=== PATIENT | female | born 1935 | race Caucasian/White ===

== ENCOUNTER 2021-12-13 10:00 | Outpatient (RCR) | payer MEDICARE, SELFPAY | END 2021-12-14 23:59 | disposition home or self-care (01) | LOC: CHSSENLIFE 10:00 | PROVIDERS: PCP Family Medicine; Visit Provider Psychiatry & Neurology Psychiatry | DX: F32.2 Major depressive disorder, single episode, severe without psychotic features (principal) | CPT/HCPCS: 90792; 90853; 99213; 99214; G0463 ==

== ENCOUNTER 2022-03-09 10:00 | Outpatient (RCR) | payer MEDICARE, SELFPAY | END 2022-03-15 23:59 | disposition home or self-care (01) | LOC: CHSSENLIFE 10:00 | PROVIDERS: PCP Family Medicine; Visit Provider Psychiatry & Neurology Psychiatry | DX: F32.2 Major depressive disorder, single episode, severe without psychotic features (principal) | CPT/HCPCS: 90853; 99213; 99214; G0463 ==

== ENCOUNTER 2022-06-21 10:00 | Outpatient (RCR) | payer MEDICARE, SELFPAY | END 2022-06-26 23:59 | disposition home or self-care (01) | LOC: CHSSENLIFE 10:00 | PROVIDERS: PCP Family Medicine; Visit Provider Psychiatry & Neurology Psychiatry | DX: F32.2 Major depressive disorder, single episode, severe without psychotic features (principal) | CPT/HCPCS: 90834; 90853; 99213; G0463 ==

== ENCOUNTER 2022-07-13 10:00 | Outpatient (RCR) | payer MEDICARE, SELFPAY | END 2022-07-13 14:23 | disposition home or self-care (01) | LOC: CHSSENLIFE 10:00 | PROVIDERS: PCP Family Medicine; Visit Provider Psychiatry & Neurology Psychiatry | DX: F32.2 Major depressive disorder, single episode, severe without psychotic features (principal) | CPT/HCPCS: 90853; 99213; G0463 ==

== ENCOUNTER 2022-12-05 10:00 | Outpatient (RCR) | payer MEDICARE, SELFPAY | END 2022-12-06 23:59 | disposition home or self-care (01) | LOC: CHSSENLIFE 10:00 | PROVIDERS: PCP Family Medicine; Visit Provider Psychiatry & Neurology Psychiatry | DX: F32.2 Major depressive disorder, single episode, severe without psychotic features (principal) | CPT/HCPCS: 90792; 90853; 99213; 99214; G0463 ==

== ENCOUNTER 2023-03-06 10:00 | Outpatient (RCR) | payer MEDICARE, SELFPAY ==
[2022-12-19 11:09] VITALS: BP 100/66; PULSE 83; RESP 20; TEMP 36.5; O2SAT 94
--- NOTE | 2022-12-21 10:18 | PC.NURSE ---
No nursing group due to MD visit.
[2022-12-21 10:27] VITALS: BP 120/60; PULSE 89; RESP 20; TEMP 36.3; O2SAT 96
[2022-12-26 11:05] VITALS: BP 134/79; PULSE 86; RESP 20; TEMP 36.7; O2SAT 94
--- NOTE | 2022-12-28 09:49 | PC.NURSE ---
No nursing group due to MD visit.
[2022-12-28 10:13] VITALS: BP 111/65; PULSE 83; RESP 20; TEMP 36.8; O2SAT 92
[2023-01-01 10:29] VITALS: BP 106/78; PULSE 84; RESP 20; TEMP 36.5
--- NOTE | 2023-01-03 10:41 | PC.NURSE ---
The patient was not able to attend group today because she needed to go to [place] to get her infusion.
[2023-01-09 10:23] VITALS: BP 119/73; PULSE 83; RESP 20; TEMP 36.6; O2SAT 93
[2023-01-11 09:50] VITALS: BP 110/64; PULSE 85; RESP 20; TEMP 36.5; O2SAT 92
--- NOTE | 2023-01-11 10:21 | PC.NURSE ---
No nursing group due to MD visit.
--- NOTE | 2023-01-11 11:12 | WPDSLSPROGRE ---
Progress HPI Progress HPI Visit Attended By patient and staff History Obtained From patient Chief Complaint four-week follow-up HPI This is a follow-up for depression. Patient kaylene's the program participates well. She is working primarily on grief, as well as coping skills and anxiety reduction. Patient says that she had a good Thanksgiving visiting with family. One of her longstanding friends recently and this has been difficult for her. Nevertheless, she continues to work on self-care, and is going to go out to the cemetery to put [place] and wreaths on relative's graves. Patient continues on Celexa 20 mg q.a.m. and wishes to continue at this dose. Average Number of Hours of Sleep 8 Sleep Quality frequent awakening Change in PMFSH Releveant to Presenting Illness Yes Describe Changes in PMFSH Recent loss of friend as above Review of Systems Review of Systems Constitutional Reports denies change Eyes Reports WNL ENT Reports WNL Respiratory Reports WNL Cardiovascular Reports WNL Gastrointestinal Reports WNL Musculoskeletal Reports WNL ( rheumatoid arthritis, osteoarthritis, chronic pain, spinal stenosis) and Reports muscle stiffness Neurologic Reports WNL Skin Reports WNL ADL's Reports WNL Exam Physical Exam Review of Lab Studies n/a Hygiene good General Behavior/Attitude Toward Examiner pleasant and cooperative Pain Yes Pain Location generalized Pain Characteristics chronic and aching Psychiatric Exam Level of Consciousness alert Orientation person, place, time and situation Speech normal rate/tone/volume/prosody and coherent Language able to comprehend questions Mood mildly depressed Affect full range, appropriate and congruent Thought Processes/Form logical, linear and goal directed Thought Content depressive symptoms Delusions none Homicidal/Assaultive Ideation none Suicidal Ideation none Hallucinations none Attention/Concentration focused Attention/Concentration Testing Methods observation/interview Short Term Memory Impairment none STM Testing Methods clinical interview (assessment/observation) Halfway Memory Impairment none LTM Testing Methods recall of biographical information Intellectual Functioning roughly average Intellectual Functioning Assessed By current events Insight fair and improving Insight Assessed By ability to recognize & acknowledge mental illness, ability to understand the implications of mental illness, understanding of treatment options and ability to comply with treatment Judgement fair and improving Judgement Assessed By exploring recent decision-making MMSE n/a Patient Assets patient is willing to accept treatment Patient Liabilities patient has medical issues, prolonged grief Assessment and Plan Clinical Impression/Diag 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 Continue IOP, monitor meds Progress Overview Reason for Continued Services in an Intensive Outpatient Program continued impaired mood and.or depression, patient would decompenste at a lower level of care, not at baseline level of functioning and high risk for relapse Treatment To Be Provided medication management and group/individual/rec therapy Discharge Disposition/Level of Care PCP Anticipated Discharge 8-12 weeks Certification Statement Certification Statement I believe this patient requires the services of the Intensive Outpatient Program and that there is reasonable expectation that the patient will make timely and significant practical improvement in the presenting acute symptoms as a result of this Intensive Outpatient Program. I do not believe this patient will benefit from a lesser level of care or could be adequately and appropriately treated in a less restrict
[2023-01-16 09:55] VITALS: BP 125/68; PULSE 76; RESP 20; TEMP 36.1; O2SAT 93
[2023-01-17 10:52] VITALS: BP 105/56; PULSE 82; RESP 20; TEMP 37.2; O2SAT 93
[2023-01-23 10:37] VITALS: BP 111/65; PULSE 74; RESP 20; TEMP 36.7; O2SAT 92
[2023-01-24 11:13] VITALS: BP 120/58; PULSE 83; RESP 20; TEMP 37.1; O2SAT 93
[2023-01-30 10:19] VITALS: BP 123/66; PULSE 76; RESP 20; TEMP 36.8; O2SAT 96
--- NOTE | 2023-02-01 09:50 | PC.NURSE ---
No nursing group due to MD visit.
--- NOTE | 2023-02-01 10:43 | WPDSLSPROGRE ---
Progress HPI Progress HPI Visit Attended By patient and staff History Obtained From patient and other Chief Complaint Follow-up for depression HPI this is a routine follow-up. Patient enjoys the program and participates well. She continues to work primarily on grief, as well as anxiety reduction and coping skills. She feels that the 2nd holiday without her seems to be the worst so far. Fortunately she will be spending the holidays with family. She also has coffee with a group of ladies occasionally, and they are widows as well. Patient continues on Celexa 20 mg q.a.m. in which to continue at this dose. She is unable to tell me exactly how much sleep she gets a night because she sleeps a different times . Patient also has been conscientious about getting her vaccines. Average Number of Hours of Sleep 6 Sleep Quality difficulty falling asleep, frequent awakening and restlessness Change in PMFSH Releveant to Presenting Illness No Review of Systems Review of Systems Constitutional Reports denies change Eyes Reports WNL ENT Reports WNL Respiratory Reports WNL Cardiovascular Reports WNL Gastrointestinal Reports WNL Musculoskeletal Reports WNL ( Rheumatoid arthritis, osteoarthritis, chronic pain, spinal stenosis) and Reports muscle stiffness Neurologic Reports WNL Skin Reports WNL ADL's Reports WNL Exam Physical Exam Review of Lab Studies n/a Hygiene good General Behavior/Attitude Toward Examiner pleasant and cooperative Pain Yes Pain Location generalized Pain Characteristics chronic and aching Psychiatric Exam Level of Consciousness alert Orientation person, place, time and situation Speech normal rate/tone/volume/prosody and coherent Language able to comprehend questions Mood mildly depressed Affect full range and appropriate Thought Processes/Form logical, linear and goal directed Thought Content mildly depressed mood Delusions none Homicidal/Assaultive Ideation none Suicidal Ideation none Hallucinations none Attention/Concentration focused Attention/Concentration Testing Methods observation/interview Short Term Memory Impairment none STM Testing Methods clinical interview (assessment/observation) Intermediate Memory Impairment none LTM Testing Methods recall of biographical information Intellectual Functioning roughly average Intellectual Functioning Assessed By current events Insight fair Insight Assessed By ability to recognize & acknowledge mental illness, ability to understand the implications of mental illness, understanding of treatment options and ability to comply with treatment Judgement fair and improving Judgement Assessed By exploring recent decision-making MMSE n/a Patient Assets patient is willing to accept treatment Patient Liabilities multiple medical issues, prolonged grief Assessment and Plan Clinical Impression/Diag Clinical Impression/Diagnosis F 33.2, progressing well, persistent grief. Continue IOP, monitor meds Progress Overview Reason for Continued Services in an Intensive Outpatient Program continued impaired mood and.or depression, patient would decompenste at a lower level of care, not at baseline level of functioning and high risk for relapse Treatment To Be Provided medication management and group/individual/rec therapy Discharge Disposition/Level of Care PCP Anticipated Discharge 8-12 weeks Certification Statement Certification Statement I believe this patient requires the services of the Intensive Outpatient Program and that there is reasonable expectation that the patient will make timely and significant practical improvement in the presenting acute symptoms as a result of this Intensive Outpatient Program. I do not believe this patient will benefit from a lesser level of
[2023-02-01 14:37] VITALS: BP 110/59; PULSE 83; RESP 20; TEMP 36.8; O2SAT 93
--- NOTE | 2023-02-06 09:00 | PC.NURSE ---
The patient called this morning and told this nurse she was still out of town due to the holiday and would not be able to make her scheduled session today.
[2023-02-08 09:51] VITALS: BP 139/73; PULSE 87; RESP 20; TEMP 36.5; O2SAT 95
[2023-02-13 10:52] VITALS: BP 118/60; PULSE 80; RESP 20; TEMP 37.1; O2SAT 95
--- NOTE | 2023-02-15 09:59 | PC.NURSE ---
No nursing group due to MD visit.
[2023-02-15 10:44] VITALS: BP 122/66; PULSE 75; RESP 20; TEMP 37.1; O2SAT 97
[2023-02-20 10:25] VITALS: BP 114/63; PULSE 88; RESP 20; TEMP 37; O2SAT 94
--- NOTE | 2023-02-22 09:57 | PC.NURSE ---
No nursing group due to MD visit.
[2023-02-22 10:31] VITALS: BP 140/65; PULSE 79; RESP 20; TEMP 37.1; O2SAT 95
--- NOTE | 2023-02-22 11:45 | WPDSLSPROGRE ---
Progress HPI Progress HPI Visit Attended By patient and staff History Obtained From patient Chief Complaint Follow-up for depression HPI this is a 3 week follow-up for depression. Patient enjoys the program and participates well. She spent the holiday with family and had a very good visit. She still Grieves over her , and even feels guilty for trying to live her life without him. Patient is addressing this in therapy, and also has a group of ladies that she meets for coffee. She continues on Celexa 20 mg q.a.m. sleep continues to be variable. She did state that her roll finisher told her to take a Tylenol to help her get to sleep and she says that this helps, probably in part because it helps with the pain. Patient states that he did tell her to not take Tylenol p.m. with Benadryl, or NSAIDs. Average Number of Hours of Sleep 6 Sleep Quality difficulty falling asleep and frequent awakening Change in PMFSH Releveant to Presenting Illness No Review of Systems Review of Systems Constitutional Reports denies change Eyes Reports WNL ENT Reports WNL Respiratory Reports WNL Cardiovascular Reports WNL Gastrointestinal Reports WNL Musculoskeletal Reports other ( Rheumatoid arthritis, osteoarthritis, chronic pain, spinal stenosis) Neurologic Reports WNL Skin Reports WNL ADL's Reports WNL Exam Physical Exam Review of Lab Studies n/a Hygiene good General Behavior/Attitude Toward Examiner pleasant and cooperative Pain Yes Pain Location generalized Pain Characteristics chronic and aching Psychiatric Exam Level of Consciousness alert Orientation person, place, time and situation Speech normal rate/tone/volume/prosody and coherent Language able to comprehend questions Mood mildly depressed Affect full range, appropriate and congruent Thought Processes/Form logical, linear and goal directed Thought Content mildly depressed mood Delusions none Homicidal/Assaultive Ideation none Suicidal Ideation none Hallucinations none Attention/Concentration focused Attention/Concentration Testing Methods observation/interview Short Term Memory Impairment none STM Testing Methods clinical interview (assessment/observation) Server Developer Memory Impairment none LTM Testing Methods recall of biographical information Intellectual Functioning roughly average Intellectual Functioning Assessed By current events Insight fair and improving Insight Assessed By ability to recognize & acknowledge mental illness, ability to understand the implications of mental illness, understanding of treatment options and ability to comply with treatment Judgement fair and improving Judgement Assessed By exploring recent decision-making MMSE n/a Patient Assets patient is willing to accept treatment Patient Liabilities multiple medical issues, prolonged grief Assessment and Plan Clinical Impression/Diag Clinical Impression/Diagnosis F 33.2, progressing well, persistent grief. Continue IOP, monitor meds Progress Overview Reason for Continued Services in an Intensive Outpatient Program continued impaired mood and.or depression, patient would decompenste at a lower level of care, not at baseline level of functioning and high risk for relapse Treatment To Be Provided medication management and group/individual/rec therapy Discharge Disposition/Level of Care PCP Anticipated Discharge 8-12 weeks Certification Statement Certification Statement I believe this patient requires the services of the Intensive Outpatient Program and that there is reasonable expectation that the patient will make timely and significant practical improvement in the presenting acute symptoms as a result of this Intensive Outpatient Program. I do not believe this patient will benefit from
--- NOTE | 2023-02-28 08:57 | PC.NURSE ---
No nursing group due to meeting.
[2023-02-28 10:03] VITALS: BP 109/64; PULSE 86; RESP 20; TEMP 36.9; O2SAT 96
[2023-03-01 10:19] VITALS: BP 105/50; PULSE 74; RESP 20; TEMP 37.1; O2SAT 92
--- NOTE | 2023-03-01 10:48 | PC.NURSE ---
No nursing group due to MD visit.
[2023-03-06 10:42] VITALS: BP 115/87; PULSE 76; RESP 20; TEMP 37.2; O2SAT 95
== END 2023-03-07 23:59 | disposition home or self-care (01) ==
LOC: CHSSENLIFE 10:00
PROVIDERS: PCP Family Medicine; Visit Provider Psychiatry & Neurology Psychiatry
DX: F32.2 Major depressive disorder, single episode, severe without psychotic features (principal)
CPT/HCPCS: 90853; 99213; G0463

== ENCOUNTER 2023-06-05 10:00 | Outpatient (RCR) | payer MEDICARE, SELFPAY ==
[2023-03-08 00:02] VITALS: BP 115/87; PULSE 76; RESP 20; TEMP 37.2; O2SAT 95
--- NOTE | 2023-03-08 09:36 | PC.NURSE ---
No nursing group due to MD visit.
[2023-03-08 10:22] VITALS: BP 121/60; PULSE 76; RESP 20; TEMP 36.9; O2SAT 94
[2023-03-13 10:32] VITALS: BP 120/74; PULSE 74; RESP 20; TEMP 36.7; O2SAT 98
--- NOTE | 2023-03-15 08:39 | PC.NURSE ---
No nursing group due to MD visit.
[2023-03-15 10:20] VITALS: BP 118/74; PULSE 71; RESP 20; TEMP 37.1; O2SAT 97
--- NOTE | 2023-03-15 12:41 | WPDSLSPROGRE ---
Progress HPI Progress HPI Visit Attended By patient and staff History Obtained From patient Chief Complaint Follow-up for depression HPI this is a routine follow-up for depression. Patient has been doing well, enjoys the program and participates appropriately. A former group member recently and she is understandably dealing with grief related to this. She still meets with a group of some of the ladies in the program every week for coffee and dinner. Patient remains on Celexa 20 mg q.a.m.. Sleep is still somewhat irregular. Appetite is good. Average Number of Hours of Sleep 6 Sleep Quality difficulty falling asleep and frequent awakening Change in PMFSH Releveant to Presenting Illness Yes Describe Changes in PMFSH As above Review of Systems Review of Systems Constitutional Reports denies change Eyes Reports WNL ENT Reports WNL Respiratory Reports WNL Cardiovascular Reports WNL Gastrointestinal Reports WNL Musculoskeletal Reports other ( RA, oa, chronic pain, spinal stenosis) Neurologic Reports WNL Skin Reports WNL ADL's Reports WNL Exam Physical Exam Review of Lab Studies no Hygiene good General Behavior/Attitude Toward Examiner pleasant and cooperative Pain Yes Pain Location generalized Pain Characteristics chronic and aching Psychiatric Exam Level of Consciousness alert Orientation person, place, time and situation Speech normal rate/tone/volume/prosody and coherent Language able to comprehend questions Mood mildly depressed Affect full range, appropriate and congruent Thought Processes/Form logical, linear and goal directed Thought Content mild depressive symptoms Delusions none Homicidal/Assaultive Ideation none Suicidal Ideation none Hallucinations none Attention/Concentration focused Attention/Concentration Testing Methods observation/interview Short Term Memory Impairment none STM Testing Methods clinical interview (assessment/observation) Hem Inspector Memory Impairment none LTM Testing Methods recall of biographical information Intellectual Functioning roughly average Intellectual Functioning Assessed By current events Insight fair and improving Insight Assessed By ability to recognize & acknowledge mental illness, ability to understand the implications of mental illness, understanding of treatment options and ability to comply with treatment Judgement fair and improving Judgement Assessed By exploring recent decision-making MMSE n/a Patient Assets patient is willing to accept treatment Patient Liabilities multiple medical issues, prolonged grief Assessment and Plan Clinical Impression/Diag Clinical Impression/Diagnosis F 33.2, progressing well, persistent grief. Continue IOP, monitor meds Progress Overview Reason for Continued Services in an Intensive Outpatient Program continued impaired mood and.or depression, patient would decompenste at a lower level of care, not at baseline level of functioning and high risk for relapse Treatment To Be Provided medication management and group/individual/rec therapy Discharge Disposition/Level of Care PCP Anticipated Discharge 8-12 weeks Certification Statement Certification Statement I believe this patient requires the services of the Intensive Outpatient Program and that there is reasonable expectation that the patient will make timely and significant practical improvement in the presenting acute symptoms as a result of this Intensive Outpatient Program. I do not believe this patient will benefit from a lesser level of care or could be adequately and appropriately treated in a less restrictive environment. My decision is based on the preceding clinical information.
[2023-03-20 10:24] VITALS: BP 139/74; PULSE 77; RESP 20; TEMP 36.7; O2SAT 96
--- NOTE | 2023-03-22 09:42 | PC.NURSE ---
No nursing group due to MD visit.
[2023-03-22 10:13] VITALS: BP 128/58; PULSE 78; RESP 20; TEMP 36.2; O2SAT 95
[2023-03-27 10:39] VITALS: BP 137/70; PULSE 75; RESP 20; TEMP 36.7; O2SAT 95
--- NOTE | 2023-03-29 12:49 | PC.NURSE ---
The patient called and reported she fell on Sunday evening and is too sore to get out of bed at this time. She will not make it to her scheduled session today.
[2023-04-03 10:41] VITALS: BP 119/64; PULSE 76; RESP 20; TEMP 36.8; O2SAT 97
--- NOTE | 2023-04-05 09:45 | PC.NURSE ---
No nursing group due to MD visit.
[2023-04-05 10:06] VITALS: BP 115/60; PULSE 73; RESP 20; TEMP 36.6; O2SAT 96
[2023-04-10 10:19] VITALS: BP 113/60; PULSE 74; RESP 20; TEMP 37; O2SAT 94
[2023-04-12 10:44] VITALS: BP 117/78; PULSE 78; RESP 20; TEMP 36.1; O2SAT 92
--- NOTE | 2023-04-12 11:46 | WPDSLSPROGRE ---
Progress HPI Progress HPI Visit Attended By patient and staff History Obtained From patient Chief Complaint Follow-up for depression and anxiety HPI this is a 3 week follow-up. Patient enjoys the program participates well. She is working on depression, anxiety, and grief, as well as other issues. She says that she is finally made up her mind to try to get rid of some of her 's things and this is a big step for her. She still meets with a group of some the ladies in the program every week for coffee and dinner, and her family is also supportive. Patient remains on Celexa 20 mg q.a.m.. Sleep is still somewhat fragmented, and she says that she sleeps better from very early in the morning to around noon or so, which is different than when her was alive. I suggested to her that this might be because she was used to sleeping with her for almost 50 years and she agreed that this could be the reason. Average Number of Hours of Sleep 6 Sleep Quality difficulty falling asleep and early awakening Change in PMFSH Releveant to Presenting Illness No Review of Systems Review of Systems Constitutional Reports denies change Eyes Reports WNL ENT Reports WNL Respiratory Reports WNL Cardiovascular Reports WNL Gastrointestinal Reports WNL and Reports other Musculoskeletal Reports other ( RA, OA, chronic pain, spinal stenosis) Neurologic Reports WNL Skin Reports WNL ADL's Reports WNL Exam Physical Exam Review of Lab Studies no Hygiene good General Behavior/Attitude Toward Examiner pleasant and cooperative Pain Yes Pain Location generalized Pain Characteristics chronic and aching Psychiatric Exam Level of Consciousness alert Orientation person, place, time and situation Speech normal rate/tone/volume/prosody and coherent Language able to comprehend questions Mood mildly depressed, tearful Affect full range, appropriate and congruent Thought Processes/Form logical, linear and goal directed Thought Content diminished depressive/anxiety symptoms Delusions none Homicidal/Assaultive Ideation none Suicidal Ideation none Hallucinations none Attention/Concentration focused Attention/Concentration Testing Methods observation/interview Short Term Memory Impairment none STM Testing Methods clinical interview (assessment/observation) Sole Inker Memory Impairment none LTM Testing Methods recall of biographical information Intellectual Functioning roughly average Intellectual Functioning Assessed By fund of knowledge Insight good and improving Insight Assessed By ability to recognize & acknowledge mental illness, ability to understand the implications of mental illness, understanding of treatment options and ability to comply with treatment Judgement good and improving Judgement Assessed By exploring recent decision-making and exploring solutions to hyothetical situations/practical dilemmas MMSE n/a Patient Assets patient is willing to accept treatment Patient Liabilities multiple medical issues, prolonged grief Assessment and Plan Clinical Impression/Diag Clinical Impression/Diagnosis F 33.2, progressing well Progress Overview Reason for Continued Services in an Intensive Outpatient Program continued impaired mood and.or depression, patient would decompenste at a lower level of care, not at baseline level of functioning and high risk for relapse Treatment To Be Provided medication management and group/individual/rec therapy Discharge Disposition/Level of Care PCP Anticipated Discharge 8-12 weeks Certification Statement Certification Statement I believe this patient requires the services of the Intensive Outpatient Program and that there is reasonable expectation that the patient will make timely and significant practical i
--- NOTE | 2023-04-12 16:52 | PC.NURSE ---
No nursing group due to MD visit.
[2023-04-17 09:41] VITALS: BP 132/69; PULSE 73; RESP 18; TEMP 36.6; O2SAT 93
--- NOTE | 2023-04-19 09:24 | PC.NURSE ---
No nursing group today due to MD visit.
[2023-04-19 10:11] VITALS: BP 125/78; PULSE 75; RESP 20; TEMP 36.7; O2SAT 95
[2023-04-24 10:52] VITALS: BP 118/72; PULSE 73; RESP 20; TEMP 36.6; O2SAT 93
--- NOTE | 2023-04-26 09:53 | PC.NURSE ---
No nursing group due to MD visit.
[2023-04-26 10:18] VITALS: BP 128/82; PULSE 79; RESP 20; TEMP 36.2; O2SAT 95
[2023-05-01 10:28] VITALS: BP 118/76; PULSE 72; RESP 20; TEMP 36.8; O2SAT 95
--- NOTE | 2023-05-03 10:23 | PC.NURSE ---
No nursing group due to MD visit.
[2023-05-03 10:28] VITALS: BP 128/60; PULSE 73; RESP 20; TEMP 36.6; O2SAT 96
--- NOTE | 2023-05-03 12:36 | WPDSLSPROGRE ---
Progress HPI Progress HPI Visit Attended By patient and staff History Obtained From patient Chief Complaint routine follow-up for depression and anxiety HPI this is a routine follow-up. Patient enjoys the program and participates well. She continues to work on grief, anxiety, depression, among other topics. Continues on Celexa 20 mg q.a.m.. Sleep continues to remain somewhat fragmented. She and her family plan to travel to some [place] to see the eclipse next month. Patient continues to meet with the group some ladies in the program every week for coffee and dinner. Her family is also very supportive. Average Number of Hours of Sleep 6 Sleep Quality difficulty falling asleep and frequent awakening Change in PMFSH Releveant to Presenting Illness No Review of Systems Review of Systems Constitutional Reports denies change Eyes Reports WNL ENT Reports WNL Respiratory Reports WNL Cardiovascular Reports WNL Gastrointestinal Reports WNL Musculoskeletal Reports other ( RA, oa, chronic pain, spinal stenosis) Neurologic Reports WNL Skin Reports WNL ADL's Reports WNL Exam Physical Exam Review of Lab Studies yes Hygiene good General Behavior/Attitude Toward Examiner pleasant and cooperative Pain Yes Pain Location generalized Pain Characteristics chronic and aching Psychiatric Exam Level of Consciousness alert Orientation person, place, time and situation Speech normal rate/tone/volume/prosody and coherent Language able to comprehend questions Mood less depressed Affect full range, appropriate and congruent Thought Processes/Form logical, linear and goal directed Thought Content diminished depressive/anxiety symptoms Delusions none Homicidal/Assaultive Ideation none Suicidal Ideation none Hallucinations none Attention/Concentration focused Attention/Concentration Testing Methods observation/interview Short Term Memory Impairment none STM Testing Methods clinical interview (assessment/observation) Incinerator Operator Memory Impairment none LTM Testing Methods recall of biographical information Intellectual Functioning roughly average Intellectual Functioning Assessed By fund of knowledge and current events Insight fair and improving Insight Assessed By ability to recognize & acknowledge mental illness, ability to understand the implications of mental illness, understanding of treatment options and ability to comply with treatment Judgement fair and improving Judgement Assessed By exploring recent decision-making MMSE n/a Patient Assets patient is willing to accept treatment, ability to perform ADLs Patient Liabilities chronic pain, prolonge Assessment and Plan Clinical Impression/Diag Clinical Impression/Diagnosis F 33.2, progressing well. Continue IOP, monitor meds Progress Overview Reason for Continued Services in an Intensive Outpatient Program continued impaired mood and.or depression, patient would decompenste at a lower level of care, not at baseline level of functioning and high risk for relapse Treatment To Be Provided medication management and group/individual/rec therapy Discharge Disposition/Level of Care PCP Anticipated Discharge 8-12 weeks Certification Statement Certification Statement I believe this patient requires the services of the Intensive Outpatient Program and that there is reasonable expectation that the patient will make timely and significant practical improvement in the presenting acute symptoms as a result of this Intensive Outpatient Program. I do not believe this patient will benefit from a lesser level of care or could be adequately and appropriately treated in a less restrictive environment. My decision is based on the preceding clinical information.
[2023-05-08 10:45] VITALS: BP 127/60; PULSE 77; RESP 20; TEMP 37.1; O2SAT 93
[2023-05-10 09:49] VITALS: BP 137/68; PULSE 77; RESP 18; TEMP 36.2; O2SAT 94
--- NOTE | 2023-05-10 10:39 | PC.NURSE ---
No nursing group due to MD visit.
[2023-05-15 10:43] VITALS: BP 122/69; PULSE 80; RESP 20; TEMP 36.9; O2SAT 94
--- NOTE | 2023-05-17 08:52 | SLSTHERAPY ---
05/17/2023 8:52 Phone call received from Julia canceling 05/17/2023 group attendance due to illness; Julia is scheduled to return to group 05/22/2023.
[2023-05-22 10:12] VITALS: BP 107/60; PULSE 72; RESP 20; TEMP 36.9; O2SAT 93
--- NOTE | 2023-05-22 10:16 | PC.NURSE ---
No nursing group due to nurse meeting.
--- NOTE | 2023-05-24 10:02 | PC.NURSE ---
No nursing group due to MD visit.
[2023-05-24 10:23] VITALS: BP 137/68; PULSE 71; RESP 20; TEMP 36.9; O2SAT 93
--- NOTE | 2023-05-24 12:15 | WPDSLSPROGRE ---
Progress HPI Progress HPI Visit Attended By patient and staff History Obtained From patient Chief Complaint routine follow-up for depression anxiety HPI this is a routine follow-up. Patient enjoys the program participates well. She continues on Celexa 20 mg q.a.m.. Patient says that she and her family went to [facility] to see the eclipse and had a great time. Sleep continues to remain somewhat fragmented. She continues to meet with a group of some ladies in the program every week for coffee and dinner. In therapy they are working on gratitude, among other topics. Average Number of Hours of Sleep 7 Sleep Quality frequent awakening Change in PMFSH Releveant to Presenting Illness No Review of Systems Review of Systems Constitutional Reports denies change Eyes Reports WNL ENT Reports WNL Respiratory Reports WNL Cardiovascular Reports WNL Gastrointestinal Reports WNL Musculoskeletal Reports other ( RA, oa, chronic pain, spinal stenosis) Neurologic Reports WNL Skin Reports WNL ADL's Reports WNL Exam Physical Exam Review of Lab Studies n/a Hygiene good General Behavior/Attitude Toward Examiner pleasant and cooperative Pain Yes Pain Location generalized Pain Characteristics chronic Psychiatric Exam Level of Consciousness alert Orientation person, place, time and situation Speech normal rate/tone/volume/prosody and coherent Language able to comprehend questions Mood less depressed Affect full range, appropriate and congruent Thought Processes/Form logical, linear and goal directed Thought Content diminished depressive symptoms Delusions none Homicidal/Assaultive Ideation none Suicidal Ideation none Hallucinations none Attention/Concentration focused Attention/Concentration Testing Methods observation/interview Short Term Memory Impairment none STM Testing Methods clinical interview (assessment/observation) 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 Memory Impairment none LTM Testing Methods recall of biographical information Intellectual Functioning roughly average Intellectual Functioning Assessed By fund of knowledge Insight fair and improving Insight Assessed By ability to recognize & acknowledge mental illness, ability to understand the implications of mental illness, understanding of treatment options and ability to comply with treatment Judgement fair and improving Judgement Assessed By exploring recent decision-making MMSE n/a Patient Assets patient is willing to accept treatment, able to perform ADLs Patient Liabilities chronic pain, prolonged grief Assessment and Plan Clinical Impression/Diag Clinical Impression/Diagnosis F 33.2, continue IOP, monitor meds Progress Overview Reason for Continued Services in an Intensive Outpatient Program continued impaired mood and.or depression, patient would decompenste at a lower level of care, not at baseline level of functioning and high risk for relapse Treatment To Be Provided medication management and group/individual/rec therapy Discharge Disposition/Level of Care PCP Anticipated Discharge 8-12 weeks Certification Statement Certification Statement I believe this patient requires the services of the Intensive Outpatient Program and that there is reasonable expectation that the patient will make timely and significant practical improvement in the presenting acute symptoms as a result of this Intensive Outpatient Program. I do not believe this patient will benefit from a lesser level of care or could be adequately and appropriately treated in a less restrictive environment. My decision is based on the preceding clinical information.
[2023-05-28 10:50] VITALS: BP 121/60; PULSE 71; RESP 20; TEMP 36.6; O2SAT 96
[2023-05-31 10:10] VITALS: BP 120/60; PULSE 82; RESP 20; TEMP 37.1; O2SAT 94
--- NOTE | 2023-05-31 10:13 | PC.NURSE ---
No nursing group due to MD visit.
[2023-06-05 10:08] VITALS: BP 111/63; PULSE 70; RESP 20; TEMP 36.6; O2SAT 97
== END 2023-06-06 23:59 | disposition home or self-care (01) ==
LOC: CHSSENLIFE 10:00
PROVIDERS: PCP Family Medicine; Visit Provider Psychiatry & Neurology Psychiatry
DX: F32.2 Major depressive disorder, single episode, severe without psychotic features (principal)
CPT/HCPCS: 90853; 99213; G0463

== ENCOUNTER 2023-09-04 10:00 | Outpatient (RCR) | payer MEDICARE, SELFPAY ==
[2023-06-07 00:02] VITALS: BP 111/63; PULSE 70; RESP 20; TEMP 36.6; O2SAT 97
--- NOTE | 2023-06-07 09:52 | PC.NURSE ---
No nursing group due to MD visit.
[2023-06-07 10:31] VITALS: BP 128/69; PULSE 77; RESP 20; TEMP 36.6; O2SAT 96
[2023-06-12 10:15] VITALS: BP 139/64; PULSE 80; RESP 20; TEMP 36.9; O2SAT 94
[2023-06-14 10:25] VITALS: BP 123/60; PULSE 73; RESP 20; TEMP 36.6; O2SAT 92
[2023-06-19 10:08] VITALS: BP 115/67; PULSE 72; RESP 20; TEMP 36.4; O2SAT 95
--- NOTE | 2023-06-21 09:07 | PC.NURSE ---
No nursing group due to MD visit.
[2023-06-21 10:18] VITALS: BP 130/53; PULSE 72; RESP 20; TEMP 36.5; O2SAT 96
--- NOTE | 2023-06-21 11:39 | WPDSLSPROGRE ---
Progress HPI Progress HPI Visit Attended By patient and staff History Obtained From patient Chief Complaint 1 day good, 1 day bad HPI patient is being seen for depression and anxiety. She still struggles with depression and grief, regarding her , but it sounds like she also may have some PTSD symptoms. She reports intrusive thoughts, thinking about his often, hypervigilance, occasionally has nightmares. We tried Remeron at 1 point but this made her too sedated. She continues on Celexa 20 mg q.a.m.. Reports michel insomnia at night but says that she can easily sleep throughout the day. In therapy they are working on coping skills, grief, among other topics. Average Number of Hours of Sleep 7 Sleep Quality difficulty falling asleep, frequent awakening and early awakening Change in PMFSH Releveant to Presenting Illness Yes Describe Changes in PMFSH PTSD symptoms Review of Systems Review of Systems Constitutional Reports denies change Eyes Reports WNL ENT Reports WNL Respiratory Reports WNL Cardiovascular Reports WNL Gastrointestinal Reports WNL Musculoskeletal Reports other ( RA, OA, chronic pain, spinal stenosis) Neurologic Reports WNL ADL's Reports WNL Exam Physical Exam Review of Lab Studies n/a Hygiene good General Behavior/Attitude Toward Examiner pleasant and cooperative Pain Yes Pain Location generalized Pain Characteristics chronic Psychiatric Exam Level of Consciousness alert Orientation person, place, time and situation Speech normal rate/tone/volume/prosody and coherent Language able to comprehend questions Mood depressed, tearful Affect full range, appropriate and congruent Thought Processes/Form logical, linear and goal directed Thought Content depressive symptoms Delusions none Homicidal/Assaultive Ideation none Suicidal Ideation none Hallucinations none Attention/Concentration focused Attention/Concentration Testing Methods observation/interview Short Term Memory Impairment none STM Testing Methods clinical interview (assessment/observation) 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 Memory Impairment none LTM Testing Methods recall of biographical information Intellectual Functioning roughly average Intellectual Functioning Assessed By fund of knowledge Insight fair and improving Insight Assessed By ability to recognize & acknowledge mental illness, ability to understand the implications of mental illness, understanding of treatment options and ability to comply with treatment Judgement fair and improving Judgement Assessed By exploring recent decision-making MMSE n/a Patient Assets patient is willing to accept treatment, able to perform ADLs Patient Liabilities chronic pain, prolonged grief Assessment and Plan Clinical Impression/Diag Clinical Impression/Diagnosis F 33.2, persistent depressive symptoms, possible PTSD. Continue IOP, monitor meds, will start trazodone 50 mg q.h.s. for sleep Progress Overview Reason for Continued Services in an Intensive Outpatient Program continued impaired mood and.or depression, patient would decompenste at a lower level of care, not at baseline level of functioning and high risk for relapse Treatment To Be Provided medication management and group/individual/rec therapy Anticipated Discharge 8-12 weeks Certification Statement Certification Statement I believe this patient requires the services of the Intensive Outpatient Program and that there is reasonable expectation that the patient will make timely and significant practical improvement in the presenting acute symptoms as a result of this Intensive Outpatient Program. I do not believe this patient will benefit from a lesser level of care or could be adequately and appropriately treated in a less restrictive environment. My decision
[2023-06-26 10:20] VITALS: BP 122/62; PULSE 78; RESP 20; TEMP 36.1; O2SAT 92
[2023-06-28 10:05] VITALS: BP 110/83; PULSE 84; RESP 20; TEMP 37.1; O2SAT 96
--- NOTE | 2023-06-28 10:24 | PC.NURSE ---
No nursing group due to MD visit.
[2023-07-03 10:27] VITALS: BP 121/76; PULSE 80; RESP 20; TEMP 36.6; O2SAT 94
[2023-07-10 10:39] VITALS: BP 126/65; PULSE 85; RESP 20; TEMP 36.6; O2SAT 95
--- NOTE | 2023-07-12 10:15 | PC.NURSE ---
No nursing group due to MD visit.
[2023-07-12 11:07] VITALS: BP 127/73; PULSE 80; RESP 20; TEMP 37.1; O2SAT 94
--- NOTE | 2023-07-12 12:36 | WPDSLSPROGRE ---
Progress HPI Progress HPI Visit Attended By patient and staff History Obtained From patient Chief Complaint 3 week follow-up for depression HPI this is a routine follow-up. Patient enjoys the program participates well. She continues to work on grief, coping skills, anxiety reduction, among other topics. We started her on trazodone at our last visit and she is only taking 25 mg which is helping with her sleep, but is afraid to take 50 mg she does not want to be sedated. [place] . Patient is also on Celexa 20 mg q.a.m.. Average Number of Hours of Sleep 7 Sleep Quality difficulty falling asleep, frequent awakening and early awakening Change in PMFSH Releveant to Presenting Illness Yes Describe Changes in PMFSH started trazodone as above Review of Systems Review of Systems Constitutional Reports denies change Eyes Reports WNL ENT Reports WNL Respiratory Reports WNL Cardiovascular Reports WNL Gastrointestinal Reports WNL Musculoskeletal Reports other ( RA, oa, chronic pain, spinal stenosis) Neurologic Reports WNL Skin Reports WNL ADL's Reports WNL Exam Physical Exam Review of Lab Studies n/a Hygiene good General Behavior/Attitude Toward Examiner pleasant and cooperative Pain Yes Pain Location generalize, chronic Pain Characteristics chronic Psychiatric Exam Level of Consciousness alert Orientation person, place, time and situation Speech normal rate/tone/volume/prosody and coherent Language able to comprehend questions Mood mildly depressed Affect full range, appropriate and congruent Thought Processes/Form logical, linear and goal directed Thought Content depressive symptoms Delusions none Homicidal/Assaultive Ideation none Suicidal Ideation none Hallucinations none Attention/Concentration focused Attention/Concentration Testing Methods observation/interview Short Term Memory Impairment none STM Testing Methods clinical interview (assessment/observation) Residential Memory Impairment none LTM Testing Methods recall of biographical information Intellectual Functioning roughly average Intellectual Functioning Assessed By current events Insight fair and improving Insight Assessed By ability to recognize & acknowledge mental illness, ability to understand the implications of mental illness, understanding of treatment options and ability to comply with treatment Judgement fair and improving Judgement Assessed By exploring recent decision-making MMSE n/a Patient Assets patient is willing to accept treatment, able to perform ADLs Patient Liabilities chronic pain, prolonged grief Assessment and Plan Clinical Impression/Diag Clinical Impression/Diagnosis F33.2, persistent depressive symptoms. Continue IOP, monitor meds Progress Overview Reason for Continued Services in an Intensive Outpatient Program continued impaired mood and.or depression, patient would decompenste at a lower level of care, not at baseline level of functioning and high risk for relapse Treatment To Be Provided medication management and group/individual/rec therapy Discharge Disposition/Level of Care PCP Anticipated Discharge 8-12 weeks Certification Statement Certification Statement I believe this patient requires the services of the Intensive Outpatient Program and that there is reasonable expectation that the patient will make timely and significant practical improvement in the presenting acute symptoms as a result of this Intensive Outpatient Program. I do not believe this patient will benefit from a lesser level of care or could be adequately and appropriately treated in a less restrictive environment. My decision is based on the preceding clinical information.
--- NOTE | 2023-07-13 08:30 | SLSTHERAPY ---
07/13/2023 Julia cancelled group attendance for the weeks of 07/16/2023 through 08/03/2023 due to extended out of state trip with family; Julia is scheduled to return to group either 08/07/2023 or 08/09/2023 upon return home from vacation. 8:32
[2023-08-09 10:18] VITALS: BP 119/68; PULSE 78; RESP 20; TEMP 37.1; O2SAT 93
--- NOTE | 2023-08-09 12:39 | WPDSLSPROGRE ---
Progress HPI Progress HPI Visit Attended By patient and staff History Obtained From patient Chief Complaint Routine follow-up for depression HPI this is a routine follow-up. Patient spent [place] had a great time, although [place] fall [place] the [place] which necessitated a trip to the ER. Fortunately she did not sustain any broken bones but is quite sore. Enjoys the program and participates well. Continues to work on grief, coping skills, anxiety reduction, among other topics. She continues on trazodone 25 mg q.h.s. which helps with sleep, although his this has been somewhat disrupted due to pain. Patient is also on Celexa 20 mg q.a.m.. Average Number of Hours of Sleep 7 Sleep Quality difficulty falling asleep, frequent awakening and early awakening Change in PMFSH Releveant to Presenting Illness Yes Describe Changes in PMFSH Recent fall as above Review of Systems Review of Systems Constitutional Reports denies change Eyes Reports WNL ENT Reports WNL Respiratory Reports WNL Cardiovascular Reports WNL Gastrointestinal Reports WNL Musculoskeletal Reports abnormal gait and Reports other ( pain secondary to fall) Neurologic Reports WNL Skin Reports WNL ADL's Reports WNL Exam Physical Exam Review of Lab Studies n/a Hygiene good General Behavior/Attitude Toward Examiner pleasant and cooperative Pain Yes Pain Location right-side Pain Characteristics acute and sharp Psychiatric Exam Level of Consciousness alert Orientation person, place, time and situation Speech normal rate/tone/volume/prosody and coherent Language able to comprehend questions Mood less depressed. 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 Memory Impairment none LTM Testing Methods recall of biographical information Intellectual Functioning roughly average Intellectual Functioning Assessed By current events Insight fair and improving Insight Assessed By ability to recognize & acknowledge mental illness, ability to understand the implications of mental illness, understanding of treatment options and ability to comply with treatment Judgement fair Judgement Assessed By exploring recent decision-making MMSE n/a Patient Assets patient is willing to accept treatment, able to perform ADLs Patient Liabilities chronic pain, prolonged grief Assessment and Plan Clinical Impression/Diag Clinical Impression/Diagnosis F 33.2, progressing well. Continue IOP, monitor meds Progress Overview Reason for Continued Services in an Intensive Outpatient Program continued impaired mood and.or depression, patient would decompenste at a lower level of care, not at baseline level of functioning and high risk for relapse Treatment To Be Provided medication management and group/individual/rec therapy Discharge Disposition/Level of Care PCP Anticipated Discharge 8-12 weeks Certification Statement Certification Statement I believe this patient requires the services of the Intensive Outpatient Program and that there is reasonable expectation that the patient will make timely and significant practical improvement in the presenting acute symptoms as a result of this Intensive Outpatient Program. I do not believe this patient will benefit from a lesser level of care or could be adequately and appropriately treated in a less restrictive environment. My decis
--- NOTE | 2023-08-09 12:43 | PC.NURSE ---
No nursing group due to MD visit.
[2023-08-14 10:36] VITALS: BP 102/60; PULSE 88; RESP 20; TEMP 37.1; O2SAT 96
[2023-08-15 10:14] VITALS: BP 110/64; PULSE 78; RESP 20; TEMP 37.1; O2SAT 91
--- NOTE | 2023-08-15 13:01 | PC.NURSE ---
No nursing group due to MD visit.
[2023-08-21 11:12] VITALS: BP 106/60; PULSE 74; RESP 20; TEMP 36.8; O2SAT 92
[2023-08-23 10:11] VITALS: BP 110/60; PULSE 76; RESP 18; TEMP 36.6; O2SAT 94
--- NOTE | 2023-08-23 10:13 | PC.NURSE ---
No nursing group due to MD visit.
[2023-08-28 10:09] VITALS: BP 100/60; PULSE 84; RESP 20; TEMP 36.8; O2SAT 92
--- NOTE | 2023-08-30 09:57 | PC.NURSE ---
No nursing group due to MD visit.
[2023-08-30 10:15] VITALS: BP 110/60; PULSE 72; RESP 20; TEMP 36.8; O2SAT 93
--- NOTE | 2023-08-30 12:46 | WPDSLSPROGRE ---
Progress HPI Progress HPI Visit Attended By patient and staff History Obtained From patient Chief Complaint 3 week follow-up for depression HPI this is a 3 week follow-up for depression. Patient is somewhat tearful this morning as a group member just . In therapy she is obviously working on grief, as well as coping skills, anxiety reduction, among other topics. She continues on Celexa 20 mg q.a.m. and trazodone 25 mg q.h.s. which at times helps with sleep. She will occasionally take a half tablet in the middle of the night as well. still has some back pain. Average Number of Hours of Sleep 7 Sleep Quality difficulty falling asleep and frequent awakening Change in PMFSH Releveant to Presenting Illness Yes Describe Changes in PMFSH Recent passing of group member as above Review of Systems Review of Systems Constitutional Reports denies change Eyes Reports WNL ENT Reports WNL Respiratory Reports WNL Cardiovascular Reports WNL Gastrointestinal Reports WNL Musculoskeletal Reports muscle stiffness and Reports other ( Chronic pain) Neurologic Reports WNL Skin Reports WNL ADL's Reports WNL Exam Physical Exam Review of Lab Studies n/a Hygiene good General Behavior/Attitude Toward Examiner pleasant and cooperative Pain Yes Pain Location back Pain Characteristics chronic and aching Psychiatric Exam Level of Consciousness alert Orientation person, place, time and situation Speech normal rate/tone/volume/prosody and coherent Language able to comprehend questions Mood depressed, tearful Affect full range, appropriate and congruent Thought Processes/Form logical, linear and goal directed Thought Content depressive symptoms Delusions none Homicidal/Assaultive Ideation none Suicidal Ideation none Hallucinations none Attention/Concentration focused Attention/Concentration Testing Methods observation/interview Short Term Memory Impairment none STM Testing Methods clinical interview (assessment/observation) 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 Memory Impairment none LTM Testing Methods recall of biographical information Intellectual Functioning roughly average Intellectual Functioning Assessed By current events Insight fair and improving Insight Assessed By ability to recognize & acknowledge mental illness, ability to understand the implications of mental illness, understanding of treatment options and ability to comply with treatment Judgement fair and improving Judgement Assessed By exploring recent decision-making MMSE n/a Patient Assets patient is willing to accept treatment, able to perform ADLs Patient Liabilities chronic pain, grief Assessment and Plan Clinical Impression/Diag Clinical Impression/Diagnosis F 33.2, progressing well. Continue IOP, monitor meds Progress Overview Reason for Continued Services in an Intensive Outpatient Program continued impaired mood and.or depression, patient would decompenste at a lower level of care, not at baseline level of functioning and high risk for relapse Treatment To Be Provided medication management and group/individual/rec therapy Discharge Disposition/Level of Care PCP Anticipated Discharge 8-12 weeks Certification Statement Certification Statement I believe this patient requires the services of the Intensive Outpatient Program and that there is reasonable expectation that the patient will make timely and significant practical improvement in the presenting acute symptoms as a result of this Intensive Outpatient Program. I do not believe this patient will benefit from a lesser level of care or could be adequately and appropriately treated in a less restrictive environment. My decision is based on the preceding clinical information.
[2023-09-04 10:38] VITALS: BP 114/60; PULSE 72; RESP 20; TEMP 37.1; O2SAT 93
[2023-09-04 11:25] LABS: Glucose Point of Care 98 mg/dl (65-105)
== END 2023-09-05 23:59 | disposition home or self-care (01) ==
LOC: CHSSENLIFE 10:00
PROVIDERS: PCP Family Medicine; Visit Provider Psychiatry & Neurology Psychiatry
DX: F32.2 Major depressive disorder, single episode, severe without psychotic features (principal)
CPT/HCPCS: 82948; 90853; 99213; 99214; G0463

== ENCOUNTER 2024-03-06 10:00 | Outpatient (RCR) | payer MEDICARE, SELFPAY ==
[2023-12-06 00:01] VITALS: BP 116/60; PULSE 88; RESP 20; TEMP 37; O2SAT 92
--- NOTE | 2023-12-10 06:48 | PC.NURSE ---
No nursing group due to [employer] survey.
[2023-12-10 09:41] VITALS: BP 134/66; PULSE 82; RESP 20; TEMP 36.2; O2SAT 93
[2023-12-13 10:18] VITALS: BP 124/66; PULSE 83; RESP 20; TEMP 37; O2SAT 93
--- NOTE | 2023-12-13 11:16 | PC.NURSE ---
No nursing group due to MD visit
--- NOTE | 2023-12-13 12:58 | P.PN_ITS ---
Progress HPI Progress HPI Visit Attended By patient and staff History Obtained From patient Chief Complaint 4 week f/u for depression and anxiety HPI this is a routine follow-up. Patient enjoys the program participates well. She continues on Celexa 20 mg q.a.m. and trazodone 75 mg q.h.s.. Her main worry is the upcoming election. She enjoys the program and participates well, and they are working on topics such as coping skills, anxiety, etc.. Average Number of Hours of Sleep 7 Sleep Quality frequent awakening Change in PMFSH Releveant to Presenting Illness No Review of Systems Review of Systems Constitutional Reports denies change Eyes Reports WNL ENT Reports WNL Respiratory Reports WNL Cardiovascular Reports WNL Gastrointestinal Reports WNL Musculoskeletal Reports muscle stiffness and Reports other ( Osteoarthritis, chronic pain) Neurologic Reports WNL Skin Reports WNL ADL's Reports WNL Exam Physical Exam Review of Lab Studies n/a Hygiene good General Behavior/Attitude Toward Examiner pleasant and cooperative Pain Yes Pain Location left hip Pain Characteristics chronic and throbbing Psychiatric Exam Level of Consciousness alert Orientation person, place, time and situation Speech normal rate/tone/volume/prosody and coherent Language able to comprehend questions Mood anxious Affect full range, appropriate and congruent Thought Processes/Form logical, linear and goal directed Thought Content anxiety symptoms Delusions none Homicidal/Assaultive Ideation none Suicidal Ideation none Hallucinations none Attention/Concentration focused Attention/Concentration Testing Methods observation/interview Short Term Memory Impairment none STM Testing Methods clinical interview (assessment/observation) 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 Memory Impairment none LTM Testing Methods recall of biographical information Intellectual Functioning roughly average Intellectual Functioning Assessed By fund of knowledge and current events Insight fair and improving Insight Assessed By ability to recognize & acknowledge mental illness, ability to understand the implications of mental illness, understanding of treatment options and ability to comply with treatment Judgement fair and improving Judgement Assessed By exploring recent decision-making MMSE n/a Patient Assets willing to accept treatment, able to perform ADLs Patient Liabilities chronic pain, grief Assessment and Plan Clinical Impression/Diag Clinical Impression/Diagnosis F 33.2, progressing well Progress Overview Reason for Continued Services in an Intensive Outpatient Program continued impaired mood and.or depression, patient would decompenste at a lower level of care, not at baseline level of functioning and high risk for relapse Treatment To Be Provided medication management and group/individual/rec therapy Discharge Disposition/Level of Care PCP Anticipated Discharge 8-12 weeks Certification Statement Certification Statement I believe this patient requires the services of the Intensive Outpatient Program and that there is reasonable expectation that the patient will make timely and significant practical improvement in the presenting acute symptoms as a result of this Intensive Outpatient Program. I do not believe this patient will benefit from a lesser level of care or could be adequately and appropriately treated in a less restrictive environment. My decision is based on the preceding clinical information.
[2023-12-18 10:12] VITALS: BP 122/66; PULSE 84; RESP 20; TEMP 36.9; O2SAT 94
--- NOTE | 2023-12-20 09:46 | PC.NURSE ---
No nursing group due to MD visit.
[2023-12-20 10:28] VITALS: BP 117/72; PULSE 82; RESP 20; TEMP 36.6; O2SAT 93
--- NOTE | 2023-12-25 11:29 | PC.NURSE ---
The patient is unable to attend her scheduled group session today due to a medical appointment.
[2023-12-27 10:39] VITALS: BP 134/68; PULSE 76; RESP 20; TEMP 36.6; O2SAT 96
--- NOTE | 2023-12-27 10:44 | PC.NURSE ---
No nursing group due to MD visit.
[2024-01-01 10:12] VITALS: BP 120/54; PULSE 73; RESP 20; TEMP 36.7; O2SAT 95
--- NOTE | 2024-01-01 16:07 | SLSTHERAPY ---
Phone call to Layla; she reported being at the hospital with [id number] & family describing [id number] as resting comfortably at this time; Layla confirmed attendance for 01/02/2023 [facility] doctor appointment & agreed to contact [facility] staffif/as needed.
[2024-01-03 10:20] VITALS: BP 107/60; PULSE 60; RESP 20; TEMP 36.8; O2SAT 96
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
--- NOTE | 2024-01-03 14:38 | PC.NURSE ---
No nursing group due to MD visit.
[2024-01-07 10:21] VITALS: BP 138/70; PULSE 80; RESP 20; TEMP 36.8; O2SAT 94
[2024-01-08 10:09] VITALS: BP 128/62; PULSE 80; RESP 20; TEMP 36.9; O2SAT 94
--- NOTE | 2024-01-08 11:07 | PC.NURSE ---
No nursing group due to nurse meeting.
[2024-01-15 10:43] VITALS: BP 119/65; PULSE 73; RESP 20; TEMP 37.2; O2SAT 97
--- NOTE | 2024-01-17 10:14 | PC.NURSE ---
No nursing group due to MD visit.
[2024-01-17 10:36] VITALS: BP 133/75; PULSE 78; RESP 20; TEMP 36.5; O2SAT 95
[2024-01-21 10:24] VITALS: BP 130/66; PULSE 82; RESP 20; TEMP 37.2; O2SAT 93
[2024-01-22 11:20] VITALS: BP 104/60; PULSE 65; RESP 20; TEMP 37.2; O2SAT 94
[2024-01-29 10:21] VITALS: BP 128/66; PULSE 78; RESP 20; TEMP 36.8; O2SAT 95
[2024-01-31 10:29] VITALS: BP 120/64; PULSE 84; RESP 20; TEMP 36.7; O2SAT 94
--- NOTE | 2024-01-31 12:09 | P.PN_ITS ---
Progress HPI Progress HPI Visit Attended By patient and staff History Obtained From patient Chief Complaint four-week follow-up for depression and anxiety HPI this is a 4 week follow-up for depression anxiety. Patient's sister last week, as she had been ill with cancer for years. She acknowledges that this Rufus will be somewhat bitter sweet as a result but she is doing as well as could be expected. Continues on Celexa 20 mg q.a.m. and trazodone 75 mg q.h.s.. Spent Thanksgiving with family and plans to do so again for [place]. Enjoys program participates well. Working on topics such as grief and coping skills. Average Number of Hours of Sleep 7 Sleep Quality frequent awakening Change in PMFSH Releveant to Presenting Illness Yes Describe Changes in PMFSH recent passing of sister as above Review of Systems Review of Systems Constitutional Reports denies change Eyes Reports WNL ENT Reports WNL Respiratory Reports WNL Cardiovascular Reports WNL Gastrointestinal Reports WNL Musculoskeletal Reports muscle stiffness and Reports other ( Chronic pain, osteoarthritis) Neurologic Reports WNL Skin Reports WNL ADL's Reports independent Exam Physical Exam Review of Lab Studies n/a Hygiene good General Behavior/Attitude Toward Examiner pleasant and cooperative Pain Yes Pain Location left hip Pain Characteristics chronic and throbbing Psychiatric Exam Level of Consciousness alert Orientation person, place, time and situation Speech normal rate/tone/volume/prosody and coherent Language able to follow instructions or commands Mood sad Affect full range, appropriate and congruent Thought Processes/Form logical, linear and goal directed Thought Content depressive symptoms, grief Delusions none Homicidal/Assaultive Ideation none Suicidal Ideation none Hallucinations none Attention/Concentration focused Attention/Concentration Testing Methods observation/interview Short Term Memory Impairment none STM Testing Methods clinical interview (assessment/observation) [facility] Memory Impairment none LTM Testing Methods recall of biographical information Intellectual Functioning roughly average Intellectual Functioning Assessed By fund of knowledge and current events Insight fair and improving Insight Assessed By ability to recognize & acknowledge mental illness, ability to understand the implications of mental illness, understanding of treatment options and ability to comply with treatment Judgement fair and improving Judgement Assessed By exploring recent decision-making MMSE n/a Patient Assets willing to accept treatment, able to perform ADLs, family support Patient Liabilities chronic pain, grief Assessment and Plan Clinical Impression/Diag Clinical Impression/Diagnosis F 33.2, progressing well. Continue IOP. Monitor meds Progress Overview Reason for Continued Services in an Intensive Outpatient Program continued impaired mood and.or depression, patient would decompenste at a lower level of care, not at baseline level of functioning and high risk for relapse Treatment To Be Provided medication management and group/individual/rec therapy Discharge Disposition/Level of Care PCP Anticipated Discharge 8-12 weeks Certification Statement Certification Statement I believe this patient requires the services of the Intensive Outpatient Program and that there is reasonable expectation that the patient will make timely and significant practical improvement in the presenting acute symptoms as a result of this Intensive Outpatient Program. I do not lidia donny this patient will benefit from a lesser level of care or could be adequately and appropriately treated in a less restrictive environment. My decision is based on the preceding clinical information.
--- NOTE | 2024-01-31 13:22 | PC.NURSE ---
No nursing group due to MD visit.
[2024-02-05 10:53] VITALS: BP 120/74; PULSE 78; RESP 20; TEMP 37; O2SAT 95
[2024-02-07 10:50] VITALS: BP 138/82; PULSE 79; RESP 20; TEMP 36.8; O2SAT 94
[2024-02-12 10:46] VITALS: BP 120/64; PULSE 79; RESP 18; TEMP 36.9; O2SAT 96
--- NOTE | 2024-02-14 10:10 | PC.NURSE ---
No nursing group due to MD visit.
[2024-02-14 10:24] VITALS: BP 118/64; PULSE 72; RESP 20; TEMP 37.1; O2SAT 96
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
[2024-02-21 10:17] VITALS: BP 104/60; PULSE 75; RESP 20; TEMP 36.7; O2SAT 94
--- NOTE | 2024-02-21 10:59 | PC.NURSE ---
No nursing group due to MD visit.
--- NOTE | 2024-02-21 12:58 | P.PN_ITS ---
Progress HPI Progress HPI Visit Attended By patient and staff History Obtained From patient Chief Complaint 3 week follow-up for depression and anxi ety HPI this is a routine follow-up. Patient enjoys the program participates well. She enjoyed Rufus with her family, which surprised her somewhat, in spite of the fact that her sisters recently past, although she says that when she is alone she will become somewhat depressed. Continues on Celexa 20 mg q.a.m. and trazodone 75 mg q.h.s.. Working on topics such as grief and coping skills. Still has chronic pain from osteoarthritis and rheumatoid arthritis, is going to start therapy for her back and also be getting an infusion. Average Number of Hours of Sleep 7 Sleep Quality frequent awakening Change in PMFSH Releveant to Presenting Illness No Review of Systems Review of Systems Constitutional Reports denies change Eyes Reports WNL ENT Reports WNL Respiratory Reports WNL Cardiovascular Reports WNL Gastrointestinal Reports WNL Musculoskeletal Reports muscle stiffness and Reports other ( Osteoarthritis, rheumatoid arthritis, chronic pain) Neurologic Reports WNL Skin Reports WNL ADL's Reports WNL Exam Physical Exam Review of Lab Studies n/a Hygiene good General Behavior/Attitude Toward Examiner pleasant and cooperative Pain Yes Pain Location generalized Pain Characteristics chronic Psychiatric Exam Level of Consciousness alert Orientation person, place, time and situation Speech normal rate/tone/volume/prosody and coherent Language able to comprehend questions Mood mildly depressed mood Affect full range, appropriate and congruent Thought Processes/Form logical, linear and goal directed Thought Content mild depressive symptoms Delusions none Homicidal/Assaultive Ideation none Suicidal Ideation none Hallucinations none Attention/Concentration focused Attention/Concentration Testing Methods observation/interview Short Term Memory Impairment none STM Testing Methods clinical interview (assessment/observation) 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 Memory Impairment none LTM Testing Methods recall of biographical information Intellectual Functioning roughly average Intellectual Functioning Assessed By fund of knowledge Insight fair Insight Assessed By ability to recognize & acknowledge mental illness, ability to understand the implications of mental illness, understanding of treatment options and ability to comply with treatment Judgement fair Judgement Assessed By exploring recent decision-making MMSE n/a Patient Assets willing to accept treatment, able to perform ADLs Patient Liabilities recent of sister, chronic pain Assessment and Plan Clinical Impression/Diag Clinical Impression/Diagnosis F 33.2, progressing well. Continue IOP. Monitor meds Progress Overview Reason for Continued Services in an Intensive Outpatient Program continued impaired mood and.or depression, patient would decompenste at a lower level of care, not at baseline level of functioning and high risk for relapse Treatment To Be Provided medication management and group/individual/rec therapy Discharge Disposition/Level of Care PCP Anticipated Discharge 8-12 weeks Certification Statement Certification Statement I believe this patient requires the services of the Intensive Outpatient Program and that there is reasonable expectation that the patient will make timely and significant practical improvement in the presenting acute symptoms as a result of this Intensive Outpatient Program. I do not believe this patient will benefit from a lesser level of care or could be adequately and appropriately treated in a less restrictive environment. My decision is based on the preceding clinical information.
[2024-02-26 10:29] VITALS: BP 146/68; PULSE 80; RESP 20; TEMP 37.2; O2SAT 94
--- NOTE | 2024-02-28 10:24 | PC.NURSE ---
No nursing group due to MD visit.
[2024-02-28 10:36] VITALS: BP 127/66; PULSE 72; RESP 20; TEMP 36.4; O2SAT 96
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
[2024-03-04 10:44] VITALS: BP 130/74; PULSE 88; RESP 18; TEMP 36.5; O2SAT 94
[2024-03-06 10:40] VITALS: BP 124/60; PULSE 77; RESP 20; TEMP 36.7; O2SAT 94
--- NOTE | 2024-03-06 11:07 | PC.NURSE ---
No nursing group due to MD visit.
--- NOTE | 2024-03-06 11:08 | PC.NURSE ---
No nursing group due to MD visit.
== END 2024-03-09 23:59 | disposition home or self-care (01) ==
LOC: CHSSENLIFE 10:00
PROVIDERS: PCP Family Medicine; Visit Provider Psychiatry & Neurology Psychiatry
DX: F32.2 Major depressive disorder, single episode, severe without psychotic features (principal)
CPT/HCPCS: 90853; 99213; G0463

== ENCOUNTER 2024-06-03 10:00 | Outpatient (RCR) | payer MEDICARE, SELFPAY ==
[2024-03-10 10:45] VITALS: PULSE 77; RESP 20; TEMP 36.8; O2SAT 95
[2024-03-13 10:28] VITALS: BP 135/82; PULSE 68; RESP 20; TEMP 36.8; O2SAT 96
--- NOTE | 2024-03-13 11:02 | PC.NURSE ---
No nursing group due to MD visit.
--- NOTE | 2024-03-13 11:28 | P.PN_ITS ---
Progress HPI Progress HPI Visit Attended By patient and staff History Obtained From patient Chief Complaint 3 week follow-up for depression and anxi ety HPI patient is being seen for depression and anxiety as a routine follow-up. She enjoys the program and participates well. Her main problem is it is very difficult for her to get motivated to get things done around her house. 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 Continues on Celexa 20 mg q.a.m. and trazodone 75 mg q.h.s.. Working on topics such as grief and coping skills. Average Number of Hours of Sleep 7 Sleep Quality frequent awakening Change in PMFSH Releveant to Presenting Illness No Review of Systems Review of Systems Constitutional Reports denies change Eyes Reports WNL ENT Reports WNL Respiratory Reports WNL Cardiovascular Reports WNL Gastrointestinal Reports WNL Musculoskeletal Reports diminished strength, Reports muscle stiffness and Reports other ( chronic pain, osteoarthritis, rheumatoid arthritis) Neurologic Reports WNL Skin Reports WNL ADL's Reports WNL Exam Physical Exam Review of Lab Studies n/a Hygiene good General Behavior/Attitude Toward Examiner pleasant and cooperative Pain Yes Pain Location generalized Pain Characteristics chronic and aching Psychiatric Exam Level of Consciousness alert Orientation person, place, time and situation Speech normal rate/tone/volume/prosody and coherent Language able to comprehend questions Mood mildly depressed Affect full range, appropriate and congruent Thought Processes/Form logical, linear and goal directed Thought Content depressive symptoms Delusions none Homicidal/Assaultive Ideation none Suicidal Ideation none Hallucinations none Attention/Concentration focused Attention/Concentration Testing Methods observation/interview Short Term Memory Impairment none STM Testing Methods clinical interview (assessment/observation) Care Home Memory Impairment none LTM Testing Methods recall of biographical information Intellectual Functioning roughly average Intellectual Functioning Assessed By fund of knowledge Insight fair and improving Insight Assessed By ability to recognize & acknowledge mental illness, ability to understand the implications of mental illness, understanding of treatment options and ability to comply with treatment Judgement fair and improving Judgement Assessed By exploring recent decision-making MMSE n/a Patient Assets patient is willing to accept treatment, able to perform ADLs Patient Liabilities recent of sister, chronic pain Assessment and Plan Clinical Impression/Diag Clinical Impression/Diagnosis F 33.2, persistent depressive symptoms Progress Overview Reason for Continued Services in an Intensive Outpatient Program continued impaired mood and.or depression, patient would decompenste at a lower level of care, not at baseline level of functioning and high risk for relapse Treatment To Be Provided medication management and group/individual/rec therapy Discharge Disposition/Level of Care PCP Anticipated Discharge 8-12 weeks Certification Statement Certification Statement I believe this patient requires the services of the Intensive Outpatient Program and that there is reasonable expectation that the patient will make timely and significant practical improvement in the presenting acute symptoms as a result of this Intensive Outpatient Program. I do not believe this patient will benefit from a lesser level of care or could be adequately and appropriately treated in a less restrictive environment. My decision is based on the preceding clinical information.
[2024-03-18 10:24] VITALS: BP 100/64; PULSE 76; RESP 20; TEMP 36.7; O2SAT 97
--- NOTE | 2024-03-18 15:07 | PC.NURSE ---
No nursing group due to nurse meeting.
--- NOTE | 2024-03-20 09:54 | PC.NURSE ---
No nursing group due to MD visit.
[2024-03-20 10:23] VITALS: BP 133/86; PULSE 72; RESP 20; TEMP 36.4; O2SAT 97
[2024-03-25 11:00] VITALS: BP 127/60; PULSE 69; RESP 20; TEMP 36.8; O2SAT 96
[2024-03-27 10:26] VITALS: BP 109/60; PULSE 82; RESP 20; TEMP 36.5; O2SAT 94
--- NOTE | 2024-03-27 10:42 | PC.NURSE ---
No nursing group due to MD visit.
[2024-04-02 11:12] VITALS: BP 133/73; PULSE 67; RESP 20; TEMP 36.6; O2SAT 94
[2024-04-03 10:06] VITALS: BP 130/82; PULSE 64; RESP 20; TEMP 36.8; O2SAT 94
--- NOTE | 2024-04-03 10:56 | PC.NURSE ---
No nursing group due to MD visit.
--- NOTE | 2024-04-03 13:16 | P.PN_ITS ---
Progress HPI Progress HPI Visit Attended By patient and staff History Obtained From patient Chief Complaint 3 week follow-up for depression and anxi ety HPI this is a routine follow-up. Patient continues to grieve terribly for her and does not understand why she is not over it. I reiterated to her that people process grief in different ways, and that most people will continue to grieve, but that they learn to live with the grief. She says night times tend to be the worst. Continues on Celexa 20 mg q.a.m. and trazodone 75 mg q.h.s.. Continues to deal with chronic pain. She enjoys coming here and going out with friends and during those time she is usually fine but when she gets home by Herself she gets depressed. Average Number of Hours of Sleep 7 Sleep Quality frequent awakening Change in PMFSH Releveant to Presenting Illness No Review of Systems Review of Systems Constitutional Reports denies change Eyes Reports WNL ENT Reports WNL Respiratory Reports WNL Cardiovascular Reports WNL Gastrointestinal Reports WNL Musculoskeletal Reports diminished strength, Reports muscle stiffness and Reports other ( Chronic pain, osteoarthritis, rheumatoid arthritis) Neurologic Reports WNL Skin Reports WNL ADL's Reports WNL Exam Physical Exam Review of Lab Studies n/a Hygiene good General Behavior/Attitude Toward Examiner pleasant and cooperative Pain Yes Pain Location generalized Pain Characteristics chronic and aching Psychiatric Exam Level of Consciousness alert Orientation person, place, time and situation Speech normal rate/tone/volume/prosody and coherent Language able to follow instructions or commands Mood depressed, tearful Affect full range, appropriate and congruent Thought Processes/Form logical, linear and goal directed Thought Content depressive symptoms Delusions none Homicidal/Assaultive Ideation none Suicidal Ideation none Hallucinations none Attention/Concentration focused Attention/Concentration Testing Methods observation/interview Short Term Memory Impairment none STM Testing Methods clinical interview (assessment/observation) Reducing System Operator Memory Impairment none LTM Testing Methods recall of biographical information Intellectual Functioning roughly average Intellectual Functioning Assessed By current events Insight fair Insight Assessed By ability to recognize & acknowledge mental illness, ability to understand the implications of mental illness, understanding of treatment options and ability to comply with treatment Judgement fair Judgement Assessed By exploring recent decision-making MMSE n/a Patient Assets willing to accept treatment, able to perform ADLs Patient Liabilities recent of sister, grief, chronic pain Assessment and Plan Clinical Impression/Diag Clinical Impression/Diagnosis F 32.2, persistent depressive symptoms, grief. Continue IOP. Monitor meds Progress Overview Reason for Continued Services in an Intensive Outpatient Program continued impaired mood and.or depression, patient would decompenste at a lower level of care, not at baseline level of functioning and high risk for relapse Treatment To Be Provided medication management and group/individual/rec therapy Discharge Disposition/Level of Care outpatient therapy Anticipated Discharge 8-12 weeks Certification Statement Certification Statement I believe this patient requires the services of the Intensive Outpatient Program and that there is reasonable expectation that the patient will make timely and significant practical improvement in the presenting acute symptoms as a result of this Intensive Outpatient Program. I do not believe this patient will benefit from a lesser level of care or could be adequately and appropriately treated in a less restrictive environment. My d ecision is based on the preceding clinical information.
--- NOTE | 2024-04-08 07:54 | PC.NURSE ---
The patient called and reported she would not be attending her scheduled session today due to not feeling well.
[2024-04-10 10:40] VITALS: BP 133/68; PULSE 78; RESP 18; TEMP 37.1; O2SAT 94
--- NOTE | 2024-04-10 14:05 | PC.NURSE ---
No nursing group due to MD visit.
[2024-04-15 10:24] VITALS: BP 128/60; PULSE 83; RESP 20; TEMP 36.7; O2SAT 94
[2024-04-17 09:53] VITALS: BP 137/64; PULSE 77; RESP 18; TEMP 36.4; O2SAT 96
--- NOTE | 2024-04-17 09:53 | PC.NURSE ---
No nursing group due to MD visit.
--- NOTE | 2024-04-22 10:59 | PC.NURSE ---
No nursing group due to MD visit.
[2024-04-22 11:00] VITALS: BP 139/71; PULSE 69; RESP 18; TEMP 36.3; O2SAT 93
--- NOTE | 2024-04-24 09:46 | PC.NURSE ---
No nursing group due to MD visit.
[2024-04-24 10:00] VITALS: BP 136/65; PULSE 73; RESP 18; TEMP 36.4; O2SAT 95
--- NOTE | 2024-04-24 11:06 | WPDSLSPROGRE ---
Progress HPI Progress HPI Visit Attended By patient and staff History Obtained From patient Chief Complaint Three week follow-up for depression, up and down HPI this is a routine follow-up for depression. Patient enjoys the program and participates well. Her mood has been somewhat up and down , dealing mainly with ongoing grief. However, she says that things with her family are better, and she is also spending time with friends. Continues on Celexa 20 mg q.a.m. She also is trying to work on on cluttering my mind . Average Number of Hours of Sleep 8 Sleep Quality frequent awakening Change in PMFSH Releveant to Presenting Illness No Review of Systems Review of Systems Constitutional Reports denies change Eyes Reports redness/discharge ( Conjunctivitis) ENT Reports WNL Respiratory Reports WNL Cardiovascular Reports WNL Gastrointestinal Reports WNL Musculoskeletal Reports diminished strength, Reports muscle stiffness and Reports other ( rheumatoid arthritis, osteoarthritis, chronic pain, spinal stenosis) Neurologic Reports WNL Skin Reports WNL ADL's Reports WNL and Reports independent Exam Physical Exam Review of Lab Studies n/a Hygiene good General Behavior/Attitude Toward Examiner pleasant and cooperative Pain Yes Pain Location generalized Pain Characteristics chronic and aching Psychiatric Exam Level of Consciousness alert Orientation person, place, time and situation Speech normal rate/tone/volume/prosody and coherent Language able to comprehend questions Mood up and down Affect full range, appropriate and congruent Thought Processes/Form logical, linear and goal directed Thought Content depressive symptoms Homicidal/Assaultive Ideation none Suicidal Ideation none Hallucinations none Attention/Concentration focused Attention/Concentration Testing Methods observation/interview Short Term Memory Impairment none STM Testing Methods clinical interview (assessment/observation) Nursing Home Memory Impairment none LTM Testing Methods recall of biographical information Intellectual Functioning roughly average Intellectual Functioning Assessed By fund of knowledge Insight fair and improving Insight Assessed By ability to recognize & acknowledge mental illness, ability to understand the implications of mental illness, understanding of treatment options and ability to comply with treatment Judgement fair and improving Judgement Assessed By exploring recent decision-making MMSE n/a Patient Assets willing to accept treatment, able to perform ADLs Patient Liabilities grief, chronic pain Assessment and Plan Clinical Impression/Diag Clinical Impression/Diagnosis 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 Continue IOP, monitor meds. Progress Overview Reason for Continued Services in an Intensive Outpatient Program continued impaired mood and.or depression, patient would decompenste at a lower level of care, not at baseline level of functioning and high risk for relapse Treatment To Be Provided medication management and group/individual/rec therapy Discharge Disposition/Level of Care PCP Anticipated Discharge 8-12 weeks Certification Statement Certification Statement I believe this patient requires the services of the Intensive Outpatient Program and that there is reasonable expectation that the patient will make timely and significant practical improvement in the presenting acute symptoms as a result of this Intensive Outpatient Program. I do not believe this patient will benefit from a lesser level of care or could be adequately and appropriately treated in a less restrictive environment. My decision is based on the preceding clinical information.
[2024-04-28 09:53] VITALS: BP 139/73; PULSE 72; RESP 18; TEMP 36.6; O2SAT 93
[2024-05-01 09:55] VITALS: BP 118/73; PULSE 80; RESP 18; TEMP 36.6; O2SAT 94
--- NOTE | 2024-05-01 10:50 | PC.NURSE ---
No nursing group due to MD visit.
[2024-05-06 10:49] VITALS: BP 118/75; PULSE 74; RESP 18; TEMP 36.8; O2SAT 93
--- NOTE | 2024-05-08 10:11 | PC.NURSE ---
No nursing group due to MD visit.
[2024-05-08 11:09] VITALS: BP 123/68; PULSE 75; RESP 20; TEMP 36.6; O2SAT 93
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
[2024-05-15 10:23] VITALS: BP 130/75; PULSE 80; RESP 20; TEMP 36.7; O2SAT 94
--- NOTE | 2024-05-15 11:48 | WPDSLSPROGRE ---
Progress HPI Progress HPI Visit Attended By patient and staff History Obtained From patient Chief Complaint kind of a downer HPI patient is being seen for depression. She says that lately things have been somewhat of a downer . Continues to have to do with the fact that when she is around people, away from her home, keeping busy, she does well, but when at home alone she becomes more depressed. Part of this is due the fact that she continues to deal with grief over her 's passing. She continues however to say that her relationships with her family are better and she continues to spend time with friends. Continues on Celexa 20 mg q.a.m.. Average Number of Hours of Sleep 8 Change in PMFSH Releveant to Presenting Illness No Review of Systems Review of Systems Constitutional Reports denies change Eyes Reports WNL ENT Reports WNL Respiratory Reports WNL Cardiovascular Reports WNL Gastrointestinal Reports WNL Musculoskeletal Reports diminished strength, Reports muscle stiffness and Reports other ( Rheumatoid arthritis, osteoarthritis, chronic pain, spinal stenosis) Neurologic Reports WNL Skin Reports WNL ADL's Reports WNL and Reports independent Exam Physical Exam Review of Lab Studies n/a Hygiene good General Behavior/Attitude Toward Examiner pleasant and cooperative Pain Yes Pain Location generalized Pain Characteristics chronic and aching Psychiatric Exam Level of Consciousness alert Orientation person, place, time and situation Speech normal rate/tone/volume/prosody and coherent Language able to comprehend questions Mood not much Affect full range, appropriate and congruent Thought Processes/Form logical, linear and goal directed Thought Content depressive symptoms Delusions none Homicidal/Assaultive Ideation none Suicidal Ideation none Hallucinations none Attention/Concentration focused Attention/Concentration Testing Methods observation/interview Short Term Memory Impairment none STM Testing Methods clinical interview (assessment/observation) [facility] Memory Impairment none LTM Testing Methods recall of biographical information Intellectual Functioning roughly average Intellectual Functioning Assessed By fund of knowledge and current events Insight fair and improving Insight Assessed By ability to recognize & acknowledge mental illness, ability to understand the implications of mental illness, understanding of treatment options and ability to comply with treatment Judgement fair and improving Judgement Assessed By exploring recent decision-making MMSE n/a Patient Assets able to perform ADLs, willing to accept treatment Patient Liabilities grief, chronic pain Assessment and Plan Clinical Impression/Diag Clinical Impression/Diagnosis 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 Continue IOP, monitor meds Progress Overview Reason for Continued Services in an Intensive Outpatient Program continued impaired mood and.or depression, patient would decompenste at a lower level of care, not at baseline level of functioning and high risk for relapse Treatment To Be Provided medication management and group/individual/rec therapy Discharge Disposition/Level of Care PCP Anticipated Discharge 12 weeks Certification Statement Certification Statement I believe this patient requires the services of the Intensive Outpatient Program and that there is reasonable expectation that the patient will make timely and significant practical improvement in the presenting acute symptoms as a result of this Intensive Outpatient Program. I do not believe this patient will benefit from a lesser level of care or could be adequately and appropriately treated in a less restrictive environment. My decision is based on the preceding clinical information.
--- NOTE | 2024-05-15 12:54 | PC.NURSE ---
No nursing group due to MD visit.
[2024-05-19 10:57] VITALS: BP 112/64; PULSE 88; RESP 20; TEMP 36.8; O2SAT 94
[2024-05-22 10:12] VITALS: BP 120/62; PULSE 85; RESP 18; TEMP 36.4; O2SAT 94
--- NOTE | 2024-05-22 11:07 | PC.NURSE ---
No nursing group due to MD visit.
[2024-05-27 10:48] VITALS: BP 127/74; PULSE 70; RESP 20; TEMP 36.6; O2SAT 94
[2024-05-29 10:17] VITALS: BP 140/77; PULSE 78; RESP 20; TEMP 36.6; O2SAT 94
[2024-06-03 10:13] VITALS: BP 116/63; PULSE 76; RESP 20; TEMP 37; O2SAT 94
--- NOTE | 2024-06-05 09:19 | PC.NURSE ---
No nursing group due to MD visit.
--- NOTE | 2024-06-05 10:18 | PC.NURSE ---
The patient called and reported that she will not be attending her schedule session today due to being ill.
== END 2024-06-08 23:59 | disposition home or self-care (01) ==
LOC: CHSSENLIFE 10:00
PROVIDERS: PCP Family Medicine; Visit Provider Psychiatry & Neurology Psychiatry
DX: F32.2 Major depressive disorder, single episode, severe without psychotic features (principal)
CPT/HCPCS: 90853; 99213; G0463

== ENCOUNTER → 2024-08-14 10:00 | Outpatient (RCR) | payer MEDICARE, SELFPAY ==
[2024-06-09 00:01] VITALS: BP 116/63; PULSE 76; RESP 20; TEMP 37; O2SAT 94
[2024-06-10 10:15] VITALS: BP 117/86; PULSE 75; RESP 20; TEMP 37; O2SAT 94
--- NOTE | 2024-06-11 16:22 | P.PN_ITS ---
Progress HPI Progress HPI Visit Attended By patient and staff History Obtained From patient Patient Stated Chief Complaint I have been sick HPI patient is being seen for depression. She had an episode of nausea and vomiting recently and thinks that it may been food poisoning, but she has recovered. Enjoys program participates well. They are working on character among other topics. Continues on Celexa 20 mg q.a.m.. Still continues to deal with grief over her 's passing. Her relationships have a with her family have been better and continues to spend time with friends. Average Number of Hours of Sleep 8 Sleep Quality frequent awakening Change in PMFSH Releveant to Presenting Illness Yes Describe Changes in PMFSH Probable viral gastroenteritis as above Review of Systems Review of Systems Constitutional Reports denies change Eyes Reports WNL ENT Reports WNL Respiratory Reports WNL Cardiovascular Reports WNL Gastrointestinal Reports other ( recent episode of gastroenteritis, resolved) Musculoskeletal Reports abnormal gait, Reports diminished strength, Reports muscle stiffness and Reports other ( osteoarthritis, chronic pain, spinal stenosis) Neurologic Reports WNL Skin Reports WNL ADL's Reports WNL Exam Physical Exam Review of Lab Studies n/a Hygiene good General Behavior/Attitude Toward Examiner pleasant and cooperative Pain Yes Pain Location generalized Pain Characteristics chronic and aching Psychiatric Exam Level of Consciousness alert Orientation person, place, time and situation Speech normal rate/tone/volume/prosody and coherent Language able to follow instructions or commands Mood depressed Affect full range, appropriate and congruent Thought Processes/Form logical, linear and goal directed Thought Content depressive symptoms Delusions none Homicidal/Assaultive Ideation none Suicidal Ideation none Hallucinations none Attention/Concentration focused Attention/Concentration Testing Methods observation/interview Short Term Memory Impairment none STM Testing Methods clinical interview (assessment/observation) Property Coordinator Memory Impairment none LTM Testing Methods recall of biographical information Intellectual Functioning roughly average Intellectual Functioning Assessed By current events Insight fair and improving Insight Assessed By ability to recognize & acknowledge mental illness, ability to understand the implications of mental illness, understanding of treatment options and ability to comply with treatment Judgement fair and improving Judgement Assessed By exploring recent decision-making MMSE n/a Patient Assets willing to accept treatment, able to perform ADLs Patient Liabilities grief, chronic pain Assessment and Plan Clinical Impression/Diag Clinical Impression/Diagnosis F 32.2, progressing well, continue IOP, monitor meds Progress Overview Reason for Continued Services in an Intensive Outpatient Program continued impaired mood and.or depression, patient would decompenste at a lower level of care, not at baseline level of functioning and high risk for relapse Treatment To Be Provided medication management Discharge Disposition/Level of Care PCP Anticipated Discharge 4-6 weeks
[2024-06-12 10:11] VITALS: BP 118/72; PULSE 83; RESP 20; TEMP 36.5; O2SAT 96
[2024-06-17 10:17] VITALS: BP 118/60; PULSE 85; RESP 20; TEMP 36.8; O2SAT 94
--- NOTE | 2024-06-19 10:17 | PC.NURSE ---
No nursing group due to MD visit.
[2024-06-19 10:19] VITALS: BP 107/72; PULSE 82; RESP 20; TEMP 36.8; O2SAT 94
[2024-06-24 10:13] VITALS: BP 118/69; PULSE 87; RESP 18; TEMP 36.8; O2SAT 92
--- NOTE | 2024-06-24 13:59 | PC.NURSE ---
No nursing group due to nurse meeting.
[2024-06-26 10:05] VITALS: BP 110/70; PULSE 80; RESP 18; TEMP 37; O2SAT 93
[2024-07-01 10:02] VITALS: BP 110/62; PULSE 76; RESP 20; TEMP 36.8; O2SAT 94
[2024-07-03 10:21] VITALS: BP 134/76; PULSE 78; RESP 20; TEMP 36.8; O2SAT 95
--- NOTE | 2024-07-03 11:19 | WPDSLSPROGRE ---
Progress HPI Progress HPI Visit Attended By patient and staff History Obtained From patient Patient Stated Chief Complaint off and on HPI this is a routine visit for depression. Patient enjoys the program participates well. She obviously still Grieves over 's passing, although she felt that she had been getting better until her sister few months ago. However she says that she is planting herbs and cuenca in her garden, and she has not done this for a couple of years. Has coffee with high school friends on Wednesdays and has other friends that she spends time with. Got an infusion yesterday for her RA, and she is usually very tired after this. Planning to organized her house and get rid of the few things, which may indicate that she is moving on with her life as well. Averaging about 8 hours of sleep at night, trying to take care of herself. Continue Celexa 20 mg q.a.m.. Average Number of Hours of Sleep 8 Sleep Quality frequent awakening Change in PMFSH Releveant to Presenting Illness Yes Describe Changes in PMFSH Some improvement as above Review of Systems Review of Systems Constitutional Reports fatigue Eyes Reports WNL ENT Reports WNL Respiratory Reports WNL Cardiovascular Reports WNL Gastrointestinal Reports WNL Musculoskeletal Reports diminished strength, Reports muscle stiffness and Reports other ( osteoarthritis, rheumatoid arthritis, chronic pain, spinal stenosis) Neurologic Reports WNL Skin Reports WNL ADL's Reports WNL Exam Physical Exam Review of Lab Studies n/a Hygiene good General Behavior/Attitude Toward Examiner pleasant and cooperative Pain Yes Pain Location generalized Pain Characteristics chronic and aching Psychiatric Exam Level of Consciousness alert Orientation person, place, time and situation Speech normal rate/tone/volume/prosody and coherent Language able to follow instructions or commands Mood off and on Affect full range, appropriate and congruent Thought Processes/Form logical, linear and goal directed Thought Content depressive symptoms Delusions none Homicidal/Assaultive Ideation none Suicidal Ideation none Hallucinations none Attention/Concentration focused Attention/Concentration Testing Methods observation/interview Short Term Memory Impairment none STM Testing Methods clinical interview (assessment/observation) Skilled Nursing Memory Impairment none LTM Testing Methods recall of biographical information Intellectual Functioning roughly average Intellectual Functioning Assessed By current events Insight fair and improving Insight Assessed By ability to recognize & acknowledge mental illness, ability to understand the implications of mental illness, understanding of treatment options and ability to comply with treatment Judgement fair and improving Judgement Assessed By exploring recent decision-making MMSE n/a Patient Assets willing to accept treatment, able to perform ADLs Patient Liabilities grief, chronic pain Assessment and Plan Clinical Impression/Diag Clinical Impression/Diagnosis 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 Continue IOP, monitor meds Progress Overview Reason for Continued Services in an Intensive Outpatient Program continued impaired mood and.or depression, patient would decompenste at a lower level of care, not at baseline level of functioning and high risk for relapse Treatment To Be Provided medication management and group/individual/rec therapy Discharge Disposition/Level of Care PCP Anticipated Discharge 4-6 weeks
[2024-07-08 10:03] VITALS: BP 103/64; PULSE 82; RESP 18; TEMP 36.4; O2SAT 95
[2024-07-10 09:58] VITALS: BP 110/60; PULSE 70; RESP 20; TEMP 36.8; O2SAT 94
--- NOTE | 2024-07-10 10:41 | PC.NURSE ---
No nursing group due to MD visit.
[2024-07-15 09:57] VITALS: BP 108/60; PULSE 78; RESP 18; TEMP 36.9; O2SAT 94
[2024-07-17 10:07] VITALS: BP 129/67; PULSE 77; RESP 18; TEMP 36.8; O2SAT 95
[2024-07-22 10:29] VITALS: BP 109/73; PULSE 72; RESP 18; TEMP 36.8; O2SAT 94
--- NOTE | 2024-07-24 11:14 | PC.NURSE ---
No nursing group due to MD visit.
[2024-07-24 11:21] VITALS: BP 125/76; PULSE 78; RESP 18; TEMP 36.7; O2SAT 94
--- NOTE | 2024-07-24 12:31 | WPDSLSPROGRE ---
Progress HPI Progress HPI Visit Attended By patient and staff History Obtained From patient Patient Stated Chief Complaint pretty good HPI this is a routine visit for depression. Patient states that she usually does okay during the week but on weekends she becomes very depressed and says her mood is terrible. She is not sure if this has anything to do with grief but she feels like she needs to downsize her home and get rid of some clutter, organizing things. She also is having difficulty with her family who she does continue to have coffee with high school friends on Wednesdays another friend she spends time with. Continues Celexa 20 mg q.a.m.. Average Number of Hours of Sleep 8 Sleep Quality frequent awakening Change in PMFSH Releveant to Presenting Illness No Review of Systems Review of Systems Constitutional Reports fatigue Eyes Reports WNL ENT Reports WNL Respiratory Reports WNL Cardiovascular Reports WNL Gastrointestinal Reports WNL Musculoskeletal Reports diminished strength, Reports muscle stiffness and Reports other ( Osteoarthritis, chronic pain, spinal stenosis, rheumatoid arthritis) Neurologic Reports WNL Skin Reports WNL ADL's Reports WNL Exam Physical Exam Review of Lab Studies n/a Hygiene good General Behavior/Attitude Toward Examiner pleasant and cooperative Pain Yes Pain Location generalized Pain Characteristics chronic and aching Psychiatric Exam Level of Consciousness alert Orientation person, place, time and situation Speech normal rate/tone/volume/prosody and coherent Language able to comprehend questions Mood pretty good Affect full range, appropriate and congruent Thought Processes/Form logical, linear and goal directed Thought Content depressive symptoms Delusions none Homicidal/Assaultive Ideation none Suicidal Ideation none Hallucinations none Attention/Concentration focused Attention/Concentration Testing Methods observation/interview Short Term Memory Impairment none STM Testing Methods clinical interview (assessment/observation) [facility] Memory Impairment none LTM Testing Methods recall of biographical information Intellectual Functioning roughly average Intellectual Functioning Assessed By fund of knowledge Insight fair and improving Insight Assessed By ability to recognize & acknowledge mental illness, ability to understand the implications of mental illness, understanding of treatment options and ability to comply with treatment Judgement fair and improving Judgement Assessed By exploring recent decision-making MMSE n/a Patient Assets able to perform ADLs, willing to accept treatment Patient Liabilities grief, chronic pain Assessment and Plan Clinical Impression/Diag Clinical Impression/Diagnosis 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 Continue IOP, monitor meds Progress Overview Reason for Continued Services in an Intensive Outpatient Program continued impaired mood and.or depression, patient would decompenste at a lower level of care, not at baseline level of functioning and high risk for relapse Treatment To Be Provided medication management and group/individual/rec therapy Discharge Disposition/Level of Care PCP Anticipated Discharge 4-6 weeks
[2024-07-29 10:19] VITALS: BP 102/60; PULSE 78; RESP 18; TEMP 37.1; O2SAT 94
[2024-07-31 11:15] VITALS: BP 125/67; PULSE 68; RESP 18; TEMP 37; O2SAT 94
--- NOTE | 2024-07-31 11:18 | PC.NURSE ---
No nursing group due to MD visit.
[2024-08-06 10:38] VITALS: BP 118/62; PULSE 77; RESP 18; TEMP 36.9; O2SAT 92
--- NOTE | 2024-08-07 10:05 | PC.NURSE ---
No nursing group due to MD visit.
[2024-08-07 10:43] VITALS: BP 104/62; PULSE 73; RESP 20; TEMP 36.8; O2SAT 92
[2024-08-12 10:22] VITALS: BP 115/77; PULSE 82; RESP 18; TEMP 36.8; O2SAT 93
--- NOTE | 2024-08-12 14:00 | SLSTHERAPY ---
Julia canceled 08/14/24 group attendance due to family obligations; Julia is scheduled to return to group 08/19/24.
[2024-08-14 10:02] VITALS: BP 122/65; PULSE 84; RESP 18; TEMP 36.8; O2SAT 92
--- NOTE | 2024-08-14 10:32 | PC.NURSE ---
No nursing group due to MD visit.
--- NOTE | 2024-08-14 12:29 | WPDSLSPROGRE ---
Progress HPI Progress HPI Visit Attended By patient and staff History Obtained From patient Patient Stated Chief Complaint off and on HPI This is routine follow-up for depression and anxiety. Mood is variable, mainly due to continued grief, as well as the fact that her great grandson has behavioral issues and says that his mother refuses to have him in therapy or on medication. She still spends time with family and friends, and is trying to organize her house. Continues on Celexa 20 mg q.a.m.. Sleep is somewhat interrupted. Sleep Quality early awakening Change in PMFSH Releveant to Presenting Illness No Review of Systems Review of Systems Constitutional Reports fatigue Eyes Reports WNL ENT Reports WNL Respiratory Reports WNL Cardiovascular Reports WNL Gastrointestinal Reports WNL Musculoskeletal Reports abnormal gait, Reports diminished strength, Reports muscle stiffness and Reports other ( chronic pain, spinal stenosis, rheumatoid arthritis) Neurologic Reports WNL Skin Reports WNL ADL's Reports WNL Exam Physical Exam Review of Lab Studies n/a Hygiene good General Behavior/Attitude Toward Examiner pleasant and cooperative Pain Yes Pain Location generalized Pain Characteristics chronic and aching Psychiatric Exam Level of Consciousness alert Orientation person, place, time and situation Speech normal rate/tone/volume/prosody and coherent Language able to comprehend questions Mood mild depressive symptoms Affect full range, appropriate and congruent Thought Processes/Form logical, linear and goal directed Thought Content depressive and anxiety symptoms Delusions none Homicidal/Assaultive Ideation none Suicidal Ideation none Hallucinations none Attention/Concentration focused Attention/Concentration Testing Methods observation/interview Short Term Memory Impairment none STM Testing Methods clinical interview (assessment/observation) Social Work Case Manager Memory Impairment none LTM Testing Methods recall of biographical information Intellectual Functioning roughly average Intellectual Functioning Assessed By fund of knowledge Insight fair Insight Assessed By ability to recognize & acknowledge mental illness, ability to understand the implications of mental illness, understanding of treatment options and ability to comply with treatment Judgement fair Judgement Assessed By exploring recent decision-making MMSE n/a Patient Assets able to perform ADLs, willing to accept treatment Patient Liabilities grief, chronic pain Assessment and Plan Clinical Impression/Diag Clinical Impression/Diagnosis 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 Continue IOP. Monitor meds Progress Overview Reason for Continued Services in an Intensive Outpatient Program continued impaired mood and.or depression, patient would decompenste at a lower level of care, not at baseline level of functioning and high risk for relapse Treatment To Be Provided medication management and group/individual/rec therapy Discharge Disposition/Level of Care PCP Anticipated Discharge 4-6 weeks
--- NOTE | 2024-08-19 08:23 | SLSTHERAPY ---
Phone call received from Julia canceling 08/19/2024 group attendance due to illness; Julia is scheduled to return to group 08/21/2024.
--- NOTE | 2024-08-21 10:25 | PC.NURSE ---
No nursing group due to MD visit.
--- NOTE | 2024-09-04 10:05 | PC.NURSE ---
No nursing group due to MD visit.
== END ==
LOC: CHSSENLIFE 06-10 08:39
PROVIDERS: PCP Family Medicine; Visit Provider Psychiatry & Neurology Psychiatry
DX: F32.2 Major depressive disorder, single episode, severe without psychotic features (principal)
CPT/HCPCS: 90853; 99213; G0463

== ENCOUNTER 2024-12-04 10:00 | Outpatient (RCR) | payer MEDICARE, SELFPAY ==
[2024-09-09 00:02] VITALS: BP 120/64; PULSE 84; RESP 18; TEMP 36.8; O2SAT 94
[2024-09-09 10:32] VITALS: BP 114/60; PULSE 75; RESP 18; TEMP 37.1; O2SAT 92
--- NOTE | 2024-09-11 09:47 | PC.NURSE ---
No nursing group due to MD visit.
[2024-09-11 10:28] VITALS: BP 115/60; PULSE 73; RESP 18; TEMP 36.8; O2SAT 95
--- NOTE | 2024-09-11 12:43 | P.PN_ITS ---
Progress HPI Progress HPI Visit Attended By patient and staff History Obtained From patient Patient Stated Chief Complaint they're going HPI this is a routine visit for depression and anxiety. Mood continues to very, due to continued grief, as well as some family issues. Patient is trying to over an eyes her house and possibly sell some of her 's things but it is overwhelming for her. She has talked to some auctioneers. continues on Celexa 20 mg q.a.m. and also remains on trazodone 50 mg q.h.s.. Sleep sign hours a night this is somewhat interrupted due to the fact that she wakes up at night. Still experiencing chronic pain, takes Tylenol but also gets infusions for her rheumatoid arthritis. Average Number of Hours of Sleep 9 Sleep Quality frequent awakening Change in PMFSH Releveant to Presenting Illness No Review of Systems Review of Systems Constitutional Reports fatigue Eyes Reports WNL ENT Reports WNL Respiratory Reports WNL Cardiovascular Reports WNL Gastrointestinal Reports WNL Musculoskeletal Reports abnormal gait, Reports diminished strength, Reports muscle stiffness and Reports other ( Chronic pain, rheumatoid arthritis, spinal stenosis) Neurologic Reports WNL Skin Reports WNL ADL's Reports WNL and Reports independent Exam Physical Exam Review of Lab Studies n/a Hygiene good General Behavior/Attitude Toward Examiner pleasant and cooperative Pain Location generalized Pain Characteristics chronic Psychiatric Exam Level of Consciousness alert Orientation person, place, time and situation Speech normal rate/tone/volume/prosody and coherent Language able to comprehend questions Mood overwhelmed Affect full range, appropriate and congruent Thought Processes/Form logical, linear and goal directed Thought Content depressive symptoms Delusions none Homicidal/Assaultive Ideation none Suicidal Ideation none Hallucinations none Attention/Concentration focused Attention/Concentration Testing Methods observation/interview Short Term Memory Impairment none STM Testing Methods clinical interview (assessment/observation) Care Home Memory Impairment none LTM Testing Methods recall of biographical information Intellectual Functioning roughly average Intellectual Functioning Assessed By fund of knowledge Insight fair and improving Insight Assessed By ability to recognize & acknowledge mental illness, ability to understand the implications of mental illness, understanding of treatment options and ability to comply with treatment Judgement fair and improving Judgement Assessed By exploring recent decision-making MMSE n/a Patient Assets able to perform ADLs, willing to accept treatment Patient Liabilities chronic pain, 's Assessment and Plan Clinical Impression/Diag Clinical Impression/Diagnosis F 332.2. continues to struggle with grief, motivation. Continue to process grief, work on motivation Progress Overview Reason for Continued Services in an Intensive Outpatient Program continued impaired mood and.or depression, patient would decompenste at a lower level of care, not at baseline level of functioning and high risk for relapse Treatment To Be Provided medication management and group/individual/rec therapy Discharge Disposition/Level of Care PCP Anticipated Discharge 4-6 weeks
--- NOTE | 2024-09-11 12:55 | P.PN_ITS ---
Progress HPI Progress HPI Visit Attended By patient and staff History Obtained From patient Patient Stated Chief Complaint great HPI this is a routine follow-up for depression and anxiety. Patient is doing great. She wants to talk about discharge today - she is waiting on a biopsy result on her 's prostate and says that if it turns up negative, she will likely be ready to be discharged at our next visit, but if the results are not good, she may need to stay longer. I told her that we would just see what happens. Continues Remeron 15 mg q.h.s., sleeps by 8 hours a night. Will be seeing pain management next month. Attends 1 day a week and working on topics such as boundaries. still smokes but trying to quit Average Number of Hours of Sleep 8 Sleep Quality sleep throughout the night Describe Changes in PMFSH Anxiety about 's medical condition Review of Systems Review of Systems Constitutional Reports denies change Eyes Reports WNL ENT Reports WNL Respiratory Reports WNL Cardiovascular Reports other ( hypertension, chronic anticoagulation) Gastrointestinal Reports other ( GERD) Musculoskeletal Reports other ( osteoarthritis, back pain) Neurologic Reports other ( CVA) Skin Reports WNL ADL's Reports WNL and Reports independent Exam Physical Exam Review of Lab Studies n/a Hygiene good General Behavior/Attitude Toward Examiner pleasant and cooperative Pain Yes Pain Location generalized Pain Characteristics chronic and aching Psychiatric Exam Level of Consciousness alert Orientation person, place, time and situation Speech normal rate/tone/volume/prosody and coherent Language able to comprehend questions Mood less depressed Affect full range, appropriate and congruent Thought Processes/Form logical, linear and goal directed Thought Content diminished depressive symptoms Delusions none Homicidal/Assaultive Ideation none Suicidal Ideation none Hallucinations none Attention/Concentration focused Attention/Concentration Testing Methods observation/interview Short Term Memory Impairment none STM Testing Methods clinical interview (assessment/observation) 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 Memory Impairment none LTM Testing Methods recall of biographical information Intellectual Functioning roughly average Intellectual Functioning Assessed By fund of knowledge Insight fair and improving Insight Assessed By ability to recognize & acknowledge mental illness, ability to understand the implications of mental illness, understanding of treatment options and ability to comply with treatment Judgement fair and improving Judgement Assessed By exploring recent decision-making MMSE n/a Patient Assets able to perform ADLs, willing to accept treatment Patient Liabilities chronic psychiatric illness, nicotine dependence Assessment and Plan Clinical Impression/Diag Clinical Impression/Diagnosis F 33.2, F 43.1, F 41.1, F 17.2. Continues to improve. Working on topics including anxiety, boundaries Progress Overview Reason for Continued Services in an Intensive Outpatient Program continued impaired mood and.or depression, patient would decompenste at a lower level of care, not at baseline level of functioning and high risk for relapse Treatment To Be Provided medication management and group/individual/rec therapy Discharge Disposition/Level of Care PCP Anticipated Discharge 4-6 weeks
[2024-09-16 10:09] VITALS: BP 105/68; PULSE 78; RESP 18; TEMP 36.8; O2SAT 94
--- NOTE | 2024-09-18 10:05 | PC.NURSE ---
No nursing group due to MD visit.
[2024-09-18 10:34] VITALS: BP 116/60; PULSE 80; RESP 18; TEMP 36.9; O2SAT 95
[2024-09-23 10:25] VITALS: BP 133/74; PULSE 85; RESP 20; TEMP 37.1; O2SAT 94
[2024-09-25 10:11] VITALS: BP 114/68; PULSE 72; RESP 20; TEMP 36.8; O2SAT 94
--- NOTE | 2024-09-25 10:32 | PC.NURSE ---
No nursing group due to MD visit.
[2024-09-30 10:39] VITALS: BP 100/60; PULSE 78; RESP 18; TEMP 36.6; O2SAT 94
--- NOTE | 2024-10-02 10:05 | PC.NURSE ---
No nursing group due to MD visit.
[2024-10-02 10:22] VITALS: BP 112/60; PULSE 77; RESP 18; TEMP 36.8; O2SAT 94
--- NOTE | 2024-10-02 12:53 | WPDSLSPROGRE ---
Progress HPI Progress HPI Visit Attended By patient History Obtained From patient Patient Stated Chief Complaint OK HPI this is a routine follow-up for depression and anxiety. Mood continues to vary, mainly due to continued grief, although patient says she is sleeping somewhat better, not waking up as much. Still considering trying to sell some of her 's things and has talked to some auctioneers. Continuing Celexa 20 mg q.a.m. and trazodone 50 mg q.h.s.. Still experiences chronic pain, takes Tylenol, gets infusions for her rheumatoid arthritis. Average Number of Hours of Sleep 9 Sleep Quality frequent awakening Change in PMFSH Releveant to Presenting Illness No Review of Systems Review of Systems Constitutional Reports fatigue Eyes Reports WNL ENT Reports WNL Respiratory Reports WNL Cardiovascular Reports WNL Gastrointestinal Reports WNL Musculoskeletal Reports diminished strength, Reports muscle stiffness and Reports other ( Rheumatoid arthritis, spinal stenosis, chronic pain) Neurologic Reports WNL Skin Reports WNL ADL's Reports WNL Exam Physical Exam Review of Lab Studies n/a Hygiene good General Behavior/Attitude Toward Examiner pleasant and cooperative Pain Yes Pain Location generalized Pain Characteristics chronic Psychiatric Exam Level of Consciousness alert Orientation person, place, time and situation Speech normal rate/tone/volume/prosody and coherent Language able to follow instructions or commands Mood anxious Affect full range, appropriate and congruent Thought Processes/Form logical, linear and goal directed Thought Content anxiety and depressive symptoms Delusions none Homicidal/Assaultive Ideation none Suicidal Ideation none Hallucinations none Attention/Concentration focused Attention/Concentration Testing Methods observation/interview Short Term Memory Impairment none STM Testing Methods clinical interview (assessment/observation) 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 Memory Impairment none LTM Testing Methods recall of biographical information Intellectual Functioning roughly average Intellectual Functioning Assessed By fund of knowledge Insight fair and improving Insight Assessed By ability to recognize & acknowledge mental illness, ability to understand the implications of mental illness, understanding of treatment options and ability to comply with treatment Judgement fair and improving Judgement Assessed By exploring recent decision-making MMSE n/a Patient Assets able to perform ADLs, willing to accept treatment Patient Liabilities chronic pain, continuing grief Assessment and Plan Clinical Impression/Diag Clinical Impression/Diagnosis F 33.2, continues to struggle with grief, motivation Progress Overview Reason for Continued Services in an Intensive Outpatient Program continued impaired mood and.or depression, patient would decompenste at a lower level of care, not at baseline level of functioning and high risk for relapse Treatment To Be Provided medication management and group/individual/rec therapy Discharge Disposition/Level of Care PCP Anticipated Discharge 4-6 weeks
[2024-10-07 10:29] VITALS: BP 108/60; PULSE 84; RESP 20; TEMP 36.8; O2SAT 94
[2024-10-09 10:25] VITALS: BP 128/72; PULSE 84; RESP 20; TEMP 37; O2SAT 94
--- NOTE | 2024-10-09 10:49 | PC.NURSE ---
No nursing group due to MD visit.
[2024-10-14 10:16] VITALS: BP 110/60; PULSE 68; RESP 20; TEMP 37.1; O2SAT 94
--- NOTE | 2024-10-16 09:59 | PC.NURSE ---
No nursing group due to MD visit.
--- NOTE | 2024-10-16 09:59 | PC.NURSE ---
No nursing group due to MD visit.
[2024-10-16 10:15] VITALS: BP 132/63; PULSE 82; RESP 20; TEMP 36.7; O2SAT 94
[2024-10-21 10:19] VITALS: BP 120/70; PULSE 69; RESP 18; TEMP 37; O2SAT 99
--- NOTE | 2024-10-23 09:45 | PC.NURSE ---
No nursing group due to MD visit.
[2024-10-23 10:42] VITALS: BP 113/63; PULSE 78; RESP 20; TEMP 37.2; O2SAT 93
--- NOTE | 2024-10-28 08:33 | SLSTHERAPY ---
Phone call received from Julia canceling 10/28/2024 group attendance due to illness; Julia is scheduled to return to group 10/30/2024.
--- NOTE | 2024-10-30 10:18 | PC.NURSE ---
No nursing group due to MD visit.
[2024-10-30 10:32] VITALS: BP 133/64; PULSE 80; RESP 20; TEMP 37.2; O2SAT 94
--- NOTE | 2024-10-30 12:32 | P.PN_ITS ---
Progress HPI Progress HPI Visit Attended By patient and staff History Obtained From patient Patient Stated Chief Complaint depressed as hell HPI this is a routine visit for depression anxiety. Patient is much more depressed and anxious lately, with everything going on in the world, but mainly how she feels politics is affecting her life, as well as the lives of others. She is on Celexa 20 mg q.a.m. and trazodone 50 mg q.h.s.. Stayed in bed most of the weekend, very anxious. Enjoys program participates well. Still working on anxiety, coping skills, grief. Still experiencing chronic pain, takes Tylenol but also gets infusions for her rheumatoid arthritis. Average Number of Hours of Sleep 9 Sleep Quality frequent awakening Review of Systems Review of Systems Constitutional Reports fatigue Eyes Reports WNL ENT Reports WNL Respiratory Reports WNL Cardiovascular Reports WNL Gastrointestinal Reports WNL Musculoskeletal Reports abnormal gait, Reports diminished strength and Reports muscle stiffness Neurologic Reports WNL Skin Reports WNL ADL's Reports WNL and Reports independent Exam Physical Exam Review of Lab Studies n/a Hygiene good General Behavior/Attitude Toward Examiner pleasant and cooperative Pain Yes Pain Location Generalized Pain Characteristics chronic Psychiatric Exam Level of Consciousness alert Orientation person, place, time and situation Speech normal rate/tone/volume/prosody and coherent Language able to follow instructions or commands Mood depressed, anxious Affect full range, appropriate and congruent Thought Processes/Form logical, linear and goal directed Thought Content depressive and anxiety symptoms Delusions none Homicidal/Assaultive Ideation none Suicidal Ideation none Hallucinations none Attention/Concentration focused Attention/Concentration Testing Methods observation/interview Short Term Memory Impairment none STM Testing Methods clinical interview (assessment/observation) Residential Memory Impairment none LTM Testing Methods recall of biographical information Intellectual Functioning roughly average Intellectual Functioning Assessed By fund of knowledge Insight fair Insight Assessed By ability to recognize & acknowledge mental illness, ability to understand the implications of mental illness, understanding of treatment options and ability to comply with treatment Judgement fair Judgement Assessed By exploring recent decision-making MMSE n/a Patient Assets able to perform ADLs, willing to accept treatment Patient Liabilities chronic pain, 's , social stressors Assessment and Plan Clinical Impression/Diag Clinical Impression/Diagnosis F 32.2, increase in depression anxiety. Increase Celexa to 30 mg q.a.m.. Continue IOP, work on anxiety reduction techniques, coping skills Progress Overview Reason for Continued Services in an Outpatient Program continued impaired mood and.or depression, patient would decompenste at a lower level of care, not at baseline level of functioning and high risk for relapse Treatment To Be Provided medication management and group/individual/rec therapy Discharge Disposition/Level of Care PCP Anticipated Discharge 4-6 weeks
[2024-11-04 10:32] VITALS: BP 113/65; PULSE 72; RESP 20; TEMP 36.8; O2SAT 94
--- NOTE | 2024-11-06 09:49 | PC.NURSE ---
No nursing group due to MD visit.
[2024-11-06 10:16] VITALS: BP 124/61; PULSE 88; RESP 20; TEMP 36.7; O2SAT 95
[2024-11-11 10:30] VITALS: BP 102/60; PULSE 77; RESP 20; TEMP 36.6; O2SAT 94
--- NOTE | 2024-11-11 14:07 | PC.NURSE ---
No nursing group due to nurse meeting.
--- NOTE | 2024-11-13 10:19 | PC.NURSE ---
No nursing group due to MD visit.
[2024-11-13 10:30] VITALS: BP 124/80; PULSE 78; RESP 20; TEMP 36.9; O2SAT 94
[2024-11-18 10:06] VITALS: BP 123/64; PULSE 70; RESP 20; TEMP 36.3; O2SAT 94
--- NOTE | 2024-11-20 10:32 | PC.NURSE ---
No nursing group due to MD visit.
[2024-11-20 11:09] VITALS: BP 117/66; PULSE 70; RESP 20; TEMP 36.8; O2SAT 93
--- NOTE | 2024-11-20 12:16 | P.PN_ITS ---
Progress HPI Progress HPI Visit Attended By patient and staff History Obtained From patient Patient Stated Chief Complaint I think I'm better HPI this is a routine visit for depression and anxiety. She feels that she is a bit better since our last visit when we increased her Celexa to 30 mg q.day. however, she is extremely fatigued most of the time since the change, And actually slept 10 hours last night. patient still makes an effort to socialize, going out with friends from the group on Sunday nights. Still working on anxiety, coping skills, grief. She is very excited in the fact that she found a Trampoline bicycle at a [employer] sale in pay 10 dollars for it. Enjoys program, participates well. Getting an infusion tomorrow for rheumatoid arthritis. Average Number of Hours of Sleep 9 Sleep Quality sleep throughout the night Change in PMFSH Releveant to Presenting Illness Yes Describe Changes in PMFSH Increased somnolence as above Review of Systems Review of Systems Constitutional Reports fatigue Eyes Reports WNL ENT Reports WNL Respiratory Reports WNL Cardiovascular Reports WNL Gastrointestinal Reports WNL Musculoskeletal Reports abnormal gait, Reports diminished strength, Reports muscle stiffness and Reports other ( chronic pain, rheumatoid arthritis) Neurologic Reports WNL Skin Reports WNL ADL's Reports WNL and Reports independent Exam Physical Exam Review of Lab Studies n/a Hygiene good General Behavior/Attitude Toward Examiner pleasant and cooperative Pain Yes Pain Location generalized Pain Characteristics chronic and aching Psychiatric Exam Level of Consciousness alert Orientation person, place, time and situation Speech normal rate/tone/volume/prosody and coherent Language able to comprehend questions Mood less depressed Affect full range, appropriate and congruent Thought Processes/Form logical, linear and goal directed Thought Content diminished depressive and anxiety symptoms Delusions none Homicidal/Assaultive Ideation none Suicidal Ideation none Hallucinations none Attention/Concentration focused Attention/Concentration Testing Methods observation/interview Short Term Memory Impairment none STM Testing Methods clinical interview (assessment/observation) 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 Memory Impairment none LTM Testing Methods recall of biographical information Intellectual Functioning roughly average Intellectual Functioning Assessed By fund of knowledge and current events Insight fair and improving Insight Assessed By ability to recognize & acknowledge mental illness, ability to understand the implications of mental illness, understanding of treatment op tions and ability to comply with treatment Judgement fair and improving Judgement Assessed By exploring recent decision-making MMSE n/a Patient Assets able to perform ADLs, willing to accept treatment Patient Liabilities chronic pain, 's , social stressors Assessment and Plan Clinical Impression/Diag Clinical Impression/Diagnosis F 32.2, somnolence with increase in Celexa, will decreased back to 20 mg q.day. Continue to work on anxiety reduction techniques, grief, coping skills Progress Overview Reason for Continued Services in an Outpatient Program continued impaired mood and.or depression, patient would decompenste at a lower level of care, not at baseline level of functioning and high risk for relapse Treatment To Be Provided medication management and group/individual/rec therapy Discharge Disposition/Level of Care PCP Anticipated Discharge 4-6 weeks
[2024-11-25 10:22] VITALS: BP 109/64; PULSE 84; RESP 18; TEMP 36.8; O2SAT 92
--- NOTE | 2024-11-27 10:13 | PC.NURSE ---
No nursing group due to MD visit.
[2024-11-27 10:32] VITALS: BP 130/72; PULSE 75; RESP 18; TEMP 36.9; O2SAT 94
[2024-12-02 10:26] VITALS: BP 122/60; PULSE 75; RESP 20; TEMP 37.1; O2SAT 94
[2024-12-04 10:03] VITALS: BP 130/75; PULSE 81; RESP 20; TEMP 36.3; O2SAT 93
--- NOTE | 2024-12-04 10:30 | PC.NURSE ---
No nursing group due to MD visit.
== END 2024-12-08 23:59 | disposition home or self-care (01) ==
LOC: CHSSENLIFE 10:00
PROVIDERS: PCP Family Medicine; Visit Provider Psychiatry & Neurology Psychiatry
DX: F32.2 Major depressive disorder, single episode, severe without psychotic features (principal)
CPT/HCPCS: 90853; 99213; 99214; G0463